=== PATIENT | female | born 1995 | race Caucasian/White ===

== ENCOUNTER 2022-10-06 00:56 | Emergency (ER) | payer SELFPAY ==
--- NOTE | 2022-10-06 01:03 | XRR_ITS ---
PROCEDURE INFORMATION: Exam: XR Chest Exam date and time: 10/06/2022 1:35 AM Age: 27 years old Clinical indication: Shortness of breath; Additional info: SOB TECHNIQUE: Imaging protocol: Radiologic exam of the chest. Views: 1 view. COMPARISON: CT abdomen pelvis w con* [id number] 05/30/2018 8:49 PM FINDINGS: Lungs: Unremarkable. No consolidation. Pleural spaces: Unremarkable. No pleural effusion. No pneumothorax. Heart/Mediastinum: Unremarkable. No cardiomegaly. Bones/joints: Unremarkable. XR/XR chest 1V portable [id number] IMPRESSION: No acute findings.
[2022-10-06 01:12] VITALS: BP 107/64; PULSE 128; RESP 18; TEMP 38.8; O2SAT 95; BMI 22.6
[2022-10-06] MEDS: acetaminophen 500 mg Tablet 1000 MG PO (01:35)
[2022-10-06 01:44] LABS: Rapid Strep A Test Negative (Negative)
--- NOTE | 2022-10-06 01:44 | W.ED.FEVER ---
HPI - Fever General: Chief Complaint: Fever Stated Complaint: Fever, SOB, cough Time Seen by Provider: 10/06/22 01:04 Source: patient Mode of arrival: ambulatory Limitations: no limitations History of Present Illness: 27-year-old female states of the last 2 days she has had flulike symptoms she states she has had cough body aches fever along with a sore throat. States her cough has been nonproductive her pulse ox here is normal she had some mild shortness of breath she had no vomiting no abdominal pain no diarrhea. Associated symptoms: Reports chills; Deny abdominal pain, chest pain, diarrhea, dysuria, headache(s), nausea or vomiting Review of Systems Const: Reports: fever(s), chills and body aches Eyes: Denies: blurry vision or eye discomfort ENMT: Reports: throat pain Card: Denies: chest pain Resp: Reports: non-productive cough GI: Denies: abdominal pain, nausea, vomiting or diarrhea : Denies: dysuria Musc: Denies: neck pain or back pain Skin/Breast: Denies: rash Neuro: Denies: headache(s) Psych: Denies: depression Fred/Lymph: Denies: easy bruising All/Imm: Denies: urticaria PFSH ED PFSH: Medical History (Updated 10/06/22 @ 02:07 by Buddy Montero MD) No pertinent past medical history Social History (Updated 10/06/22 @ 01:46 by Buddy Montero MD) Substance/Drug Use: unknown Physical Exam Const: COMMON NORMALS: no acute distress, patient oriented x3 and healthy appearing HENMT: COMMON NORMALS: normocephalic and atraumatic HEAD & SCALP: normocephalic and atraumatic Eye: COMMON NORMALS: Equal, round and reactive pupils present and EOMs intact bilaterally PUPIL: Yes Equal, round and reactive pupils present Neck/C-Spine: COMMON NORMALS: full ROM and supple Chest: COMMONS NORMALS: normal inspection of the chest and normal palpation of entire chest wall Resp: COMMON NORMALS: normal respiratory effort, No retractions, No use of accessory muscles and clear to auscultation bilaterally AUSCULTATION: clear to auscultation bilaterally Cardio: COMMON NORMALS: regular rhythm and No murmurs present (Cardio) RATE: tachycardic RHYTHM: regular rhythm GI: COMMON NORMALS: Normal to inspection, nondistended, normoactive bowel sounds present, Soft to palpation, non-tender and no masses PALPATION: Yes Soft to palpation Extremity: COMMON NORMALS: normal to inspection and full ROM Neuro: COMMON NORMALS: patient oriented x3, moves all extremities and no focal motor deficits Psych: COMMON NORMALS: mental status grossly normal, Normal thought process present and cooperative THOUGHT PROCESS: Normal thought process present Skin: COMMON NORMALS: no rashes or lesions noted and no wounds GENERAL SKIN EXAM: no rashes or lesions noted Course Vital Signs: Vital signs: Vital Signs Temperature 101.9 F H 10/06/22 01:12 Pulse Rate 128 H 10/06/22 01:12 Respiratory Rate 18 10/06/22 01:12 Blood Pressure 107/64 10/06/22 01:12 Pulse Oximetry 95 10/06/22 01:12 Oxygen Delivery Me thod 10/06/22 01:12 MDM - Fever Medical Decision Making Patient presents here with fever does have flu a we will treat with Tamiflu at home she is to give her self Motrin Tylenol x-ray shows no pneumonia she is stable for discharge she is to follow-up with return if worsening Lab Data Radiology Impressions Chest X-Ray 10/06/22 01:03 IMPRESSION: No acute findings. Laboratory Results Influenza Type A Ag positive (Negative) H 10/06/22 01:19 Influenza Type B Ag negative (Negative) 10/06/22 01:19 SARS-CoV-2 Ag (Rapid) negative (Negative) 10/06/22 01:19 Group A Strep Rapid Negative (Negative) 10/06/22 01:19 Discharge Plan Discharge Patient Disposition: Home Clinical Impression: Influenza Prescriptions: New Tamiflu 75 mg capsule 75 mg PO BID 5 Days Qty: 10 0RF Discharge Orders: Discharge ED (Routine); Ordered 10/06/22 Ordered By: Buddy Montero Referrals: Andre Mccrary MD [Family Provider] - 1-3 days Discharge Diet: Advance as tolerated Discharge Activity: Resume usual activity Patient Instructions: Influenza (ED) Coding Level of Care Code ED Supervisor Of Operations for Chg Fwd Exam Comprehensive
[2022-10-06 01:52] LABS: Influenza A by IFA positive (Negative); Influenza B by IFA negative (Negative)
[2022-10-06 01:53] LABS: SARS Covid-2 Antigen negative (Negative)
[2022-10-06 03:15] VITALS: BP 112/69; PULSE 113; O2SAT 92
== END 2022-10-06 02:47 | disposition home or self-care (01) ==
PROVIDERS: Emergency Provider Emergency Medicine
DX: J11.1 Influenza due to unidentified influenza virus with other respiratory manifestations (principal); Z20.822 Contact with and (suspected) exposure to COVID-19
CPT/HCPCS: 71045; 87081; 87426; 87804; 87880; 99283

== ENCOUNTER 2023-06-04 10:33 | Emergency (ER) | payer SELFPAY ==
[2023-06-04 10:45] VITALS: BMI 23.0
[2023-06-04 10:47] VITALS: BP 103/57; PULSE 89; RESP 15; TEMP 36.8; O2SAT 98
--- NOTE | 2023-06-04 14:53 | ED_ITS ---
HPI - URI/Sore Throat General: Chief Complaint: Upper Respiratory Infection Stated Complaint: stuffy head, chest pressure, weak Time Seen by Provider: 06/04/23 10:34 History of Present Illness: Patient is in for upper respiratory symptoms. She reports that for the past 3 days she has been having significant nasal congestion, drainage. She reports that she has not noted a fever. She reports that yesterday she started feeling a little more weak and tired. She denies vomiting. She does offer that her roommate recently had COVID diagnosed by test within the past 1 week. Associated symptoms: Reports nasal congestion; Deny abdominal pain, chills, chest pain, fever(s), nausea or vomiting Review of Systems Const: Denies: fever(s) or chills ENMT: Reports: throat pain, nasal discharge and nasal congestion Card: Denies: chest pain or palpitations Resp: Reports: non-productive cough and wheezing; Denies: dyspnea or productive cough GI: Denies: abdominal pain, nausea or vomiting : Denies: flank pain, difficulty voiding or dysuria [facility] ED PFSH: Medical History No pertinent past medical history Social History Substance/Drug Use: unknown Female Reproductive History: Date of last menstrual period: 04/29/23 Physical Exam Const: COMMON NORMALS: no acute distress, patient oriented x3 and alert HENMT: COMMON NORMALS: normocephalic and EAC's normal HEAD & SCALP: normocephalic FACE & SINUS: normal facial exam and sinuses nontender NOSE: Abnormal mucous membranes and turbinates present erythematous EXTERNAL AUDITORY CANAL: EAC's normal THROAT: posterior oropharynx abnormal erythema; no exudates Neck/C-Spine: COMMON NORMALS: no JVD Resp: COMMON NORMALS: normal respiratory effort, No use of accessory muscles and clear to auscultation bilaterally AUSCULTATION: clear to auscultation bilaterally Cardio: COMMON NORMALS: no JVD, regular rate, regular rhythm, S1 normal heart sound present and S2 normal heart sound present RATE: regular rate RHYTHM: regular rhythm HEART SOUNDS: S1 normal heart sound present and S2 normal heart sound present Neuro: COMMON NORMALS: patient oriented x3 SENSORIUM/ORIENTATION: Yes alert Course Vital Signs: Vital signs: Vital Signs Temperature 98.2 F 06/04/23 10:47 Pulse Rate 89 06/04/23 10:47 Respiratory Rate 15 06/04/23 10:47 Blood Pressure 103/57 06/04/23 10:47 Pulse Oximetry 98 06/04/23 10:47 Oxygen Delivery Me thod Room Air 06/04/23 10:47 MDM - URI/Sore Throat Medical Decision Making Differentials include viral infection, COVID-19, upper respiratory infection, acute sinusitis Patient had a recent exposure to a known positive COVID-19 patient who is her roommate. Patient reports similar symptoms as her roommate had. Vital signs are stable patient is in no acute distress. Lengthy discussion was held with patient regarding conservative management of COVID-19 should she actually have that. Patient would like to be tested for COVID-19 but also wants to be discharged for home and does not want to stay for the results of the testing at this time. Patient advised that she will call in just a few hours if she had not heard anything. Patient understands conservative treatment at home including staying well-hydrated and making sure that she is coughing and deep breathing frequently make it sure that she is not moving but also resting. Follow-up with primary care provider as needed. Return to the ER for new or worsening symptoms. Patient verbalized understanding of all instruction and agreement. Discharged home in stable condition Discharge Plan Discharge Patient Disposition: Home Clinical Impression: Upper respiratory infection, Viral infection Condition: Stable Prescriptions: No Action No Known Home Medications Discharge Orders: Discharge ED (Routine); Ordered 06/04/23 Ordered By: Georgina Alfonso Discharge Diet: Usual diet Discharge Activity: Resume usual activity Patient Instructions: Social Distancing Guidelines for COVID-19 (ED) Activity Restrictions/Additional Instructions: We are awaiting the results of your COVID-19 nasal swab. At this point, your vital signs are stable. I recommend conservative care at home including a ntihistamine and Flonase to help control postnasal drainage, staying well- hydrated, making sure that you are up and moving, coughing and deep breathing. Monitor closely for new or worsening symptoms and return to the ER should you notice new or worsening symptoms. Continue follow-up with your primary care provider. I recommend quarantine per CDC current guidelines unless you are shown to be negative today for COVID-19. Coding Level of Care Code ED Cheese Packer for Raven Shannon
[2023-06-04 15:12] LABS: SARS Covid-2 Antigen negative (Negative)
== END 2023-06-04 15:11 | disposition home or self-care (01) ==
PROVIDERS: Emergency Provider Nurse Practitioner Family
DX: J06.9 Acute upper respiratory infection, unspecified (principal); Z20.822 Contact with and (suspected) exposure to COVID-19
CPT/HCPCS: 87426; 99282

== ENCOUNTER 2024-07-28 17:35 | Outpatient (CLI) | payer SELFPAY ==
[2024-07-28] VITALS (7 sets, daily range): BP systolic 116–127; BP diastolic 64–72; PULSE 80–123; RESP 17; BMI 28.0
[2024-07-28 18:47] LABS: Bilirubin Urine Negative (Negative); Blood Urine 3+ (Negative); Glucose Urine UA Negative (Normal); Ketones Urine Trace (Negative); Leukocyte Esterase Urine Trace (Negative); Nitrate Urine Negative (Negative); Protein Urine 1+ (Negative); Urine Appearance Clear (CLEAR); Urine Color Yellow (Yellow); pH Urine 5.5 (5-7)
[2024-07-28 18:51] LABS: Bacteria Urine None Seen /hpf; Hyaline Casts Urine 2.05 /lpf; RBC Urine >100 /hpf (0-2); Squamous Epithelial Cell Urine 0-5 /hpf (0-5); WBC Urine 0-5 /hpf (0-5)
[2024-07-28 18:53] LABS: Specific Gravity, Urine 1.035 (1.005-1.030)
[2024-07-28 18:54] LABS: Add Urine Culture? Yes
== END 2024-07-28 19:11 | disposition home or self-care (01) ==
LOC: OPOB 17:36 → OBGYN 17:37
PROVIDERS: Visit Provider Family Medicine
DX: O26.899 Other specified pregnancy related conditions, unspecified trimester (principal); Z3A.00 Weeks of gestation of pregnancy not specified; R51.9 Headache, unspecified; H53.9 Unspecified visual disturbance
CPT/HCPCS: 59025; 81001; 87086; 99211

== ENCOUNTER 2025-08-11 08:20 | Emergency (ER) | payer MEDICAID, SELFPAY ==
--- OUTSIDE RECORDS SUMMARY | 2024-10-25 04:30 | XMS_ITS ---
Author Organization [facility] Address [address] [place] [address] Care Team Providers Care Branch Specialist Name Role Phone Lisa Orly Unavailable [phone] REASON FOR VISIT BTL Encounters Encounter Location Date Provider Diagnosis [address] [place] [address] 10/25/2024 Orly Gonzalez Plan Of Treatment Next Appt Details Provider Name:Orly ferguson, 02/25/2027 02:00:00 PM, [address] [place] [address] [address] [address], [place], [address], Progress Notes * RONALD WATTS SDOB: [birth year] (30 yo F)Acc No.[id number]:10/25/2024 Patient: Jesse COELHO RONALD Leanne Provider: Mamta Gonzalez MD :1995 A ge:29 Y S ex:Female Date:10/25/2024 Address:[address] [place], [place] [id number] Billing Information: * Procedure Codes: * Electronic signature of Gianfranco Gonzalez MD on 08/11/2025 at 08:40 AM HOTEL MANAGER Sign off status: Pending * Provider: Mamta Gonzalez MD Date: 10/25/2024 Generated for Judith ventura/Usama/Yolandaitting on: 10/11/2024 08:40 AM HOTEL MANAGER
--- OUTSIDE RECORDS SUMMARY | 2024-11-24 07:00 | XMS_ITS ---
Author Organization [facility] Address [address] [place] [address] Care Team Providers Care Audit Control Clerk Name Role Phone Lisa Orly Unavailable [phone] REASON FOR VISIT 4 WK POST OP Encounters Encounter Location Date Provider Diagnosis [address] [place] [address] 11/24/2024 Orly Gonzalez Plan Of Treatment Next Appt Details Provider Name:Orly Saldivar ers, 02/25/2027 02:00:00 PM, [address] [place] [address] [address] [address], [place], [address], Progress Notes * RONALD WATTS SDOB: [birth year] (30 yo F)Acc No.[id number]:11/24/2024 Patient: Jesse COELHO RONALD Leanne Provider: Mamta Gonzalez MD :1995 A ge:29 Y S ex:Female Date:11/24/2024 Address:[address] [place], [place] [phone] Subjective: * Chief Complaints: * 4 WK POST OP Billing Information: * Procedure Codes: * Electronic signature of Gianfranco Gonzalez MD on 08/11/2025 at 08:40 AM IMAGING NURSE Sign off status: Pending * Provider: Mamta Gonzalez MD Date: 11/24/2024 Generated for Judith ventura/Usama/Yolandaitting on: 10/11/2024 08:40 AM IMAGING NURSE
[2025-08-11 08:29] VITALS: BP 113/56; PULSE 108; RESP 18; TEMP 36.8; O2SAT 93; BMI 24.6
--- OUTSIDE RECORDS SUMMARY | 2025-08-11 08:40 | XMS_ITS | Patient Health Record ---
Author Organization 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 Name Role Phone Orly Gonzalez Unavailable [phone] Allergies No Known Allergies Results Component Value Reference Range Flag Notes UA Reflex Micro, Reflex Cult 40532, 23050, 68510 Reviewed date:09/15/2024 08:35:21 AM Interpretation: Performing Lab: Notes/Report: Color UA Yellow NA Clarity UA Clear NA Specific gravity UA 1.020 1.005-1.030 Urine pH 6.0 5.0-8.0 NA Urine Glucose Negative NA Urine Bilirubin Negative NA Urine Ketone Trace NA Urine Blood 2+ NA Urine Protein 2+ NA Urobilinogen 0.2 0.1-1.0 NA Urine Nitrite Negative NA Urine Leukocyte Negative NA Normal UA Yes Urine Culture No UA Without Micro-Auto, [place] - [id number] Reviewed date:09/07/2024 02:17:00 PM Interpretation: Performing Lab: Notes/Report: Color JEREMÍAS Clarity CLEAR Glucose - Bili - Ketones - Sp [place] 1.020 Blood - pH 6.0 Protein -+ Urobili 0.2 Nitrites - Leukocytes - CBC w\ Manual Diff 75563, 85 027 Reviewed date:09/20/2024 09:30:56 AM Interpretation: Performing Lab: Notes/Report: WBC 7.6 4.5-11.0 X10'3 RBC 3.23 4.00-5.20 X10'6 LOW Hgb 9.0 12.0-16.0 G/DL LOW Hct 28.1 36.0-46.0 % LOW MCV 87.0 80.0-100.0 FL MCH 27.9 27.0-31.0 PG MCHC 32.0 31.0-37.0 G/DL Platelet 160 150-400 X10'3 RDW-SD 41.9 35.0-49.0 FL RDW-CV 13.3 12.2-15.6 % MPV 11.4 9.2-12.0 FL Band/Segs Man 84 40-70 % HI Lymph Man 14 22-44 % LOW Monocyte Man 2 3-7 % LOW Eos Man 0 2-4 % LOW Basophil Man 0 0-1 % PLT Appear Adequate RBC Morph Normal Morph Absolute Neutrophil Count 6384 NA Magnesium (B) 87730 Reviewed date:09/19/2024 03:43:59 PM Interpretation: Performing Lab: Notes/Report: Magnesium 4.7 1.8-2.4 MG/DL CO Comprehensive Metabolic Pane l (CMP) 91035 Reviewed date:09/19/2024 03:44:06 PM Interpretation: Performing Lab: Notes/Report: Glucose Serum 162 71-110 MG/DL HI Testing p erformed at [facility], [address] [place] [address] [place] [address]. CLIA ID#: [id number] BUN 6 7-21 MG/DL LOW Creat .53 .51-1.17 MG/DL W-vkjoea-o-benzoquino ne imine (NAPQI) is a metabolite of acetaminophen, NAPQI concentrations of apparoximately 10 mg/L correlation to toxic levels of acetaminophen demonstrates a greater than or equil to 10% change in results. NAPQI concentrations greater than this may lead to falsely depressed results for patient samples. Use of this assay is not recommended for patients undergoing treatment with phenindione, due to the potential for falsely depressed results. GFR 128.9 NA Calculation pe rformed from GFR calculator provided by the [employer]. Glomerular Filtration rate(GRF) is the best overall index of kidney function. Normal GFR varies according to age,sex, body size, and declines with age. The National [employer] recommends using the CKD-EPI Creatinine Equation(2020) to estimate GFR. BUN/Creat Ratio 11.3 12.0-20.0 % LOW Total Protein 5.5 5.8-8.0 G/DL LOW Albumin 3.3 3.2-4.8 G/DL Globulin 2.2 2.3-3.5 G/DL LOW Alb/Glob 1.5 0.8-2.2 Calcium 7.9 8.7-10.4 MG/DL LOW Sodium 140 136-145 MMOL/L Potassium 3.8 3.5-5.1 MMOL/L Chloride 108 98-107 MMOL/L HI CO2 23.7 20.0-31.0 MMOL/L Anion Gap 12 5-15 Alk Phos 150 46-116 HI Bili Total .2 .3-1.2 MG/DL LOW Use of this assay is not recommended for patients undergoing treatment with eltrombopag due to the potential for falsely elevated results. AST/SGOT 11 15-37 UNIT/L LOW ALT/SGPT <7 12-78 UNIT/L LOW Osmo Serum,Calculated 291 280-300 MOSM/KG SYPHILIS TEST, QUAL (RPR) 86 592 Reviewed date:09/19/2024 07:59:40 AM Interpretation: Performing Lab: Notes/Report: Syphilis Screen Non-Reactive NA Testing performed via [employer] IM analyzer. This assay is a Chemiluminescent Microparticle Immunoassay for the detection of Treponemal antibodies. Reactive samples will be confirmed via RPR w/Reflex to Titer in accordance with CDC's recommended reverse sequence screening algorithm. Antibody Screen 98973 Reviewed date:09/19/2024 07:59:40 AM Interpretation: Performing Lab: Notes/Report: Blood Bank ID [id number] Unknown ABSC Interp Negative ABORh 71833, 60961 Reviewed date:09/19/2024 07:59:40 AM Interpretation: Performing Lab: Notes/Report: ABO/Rh Interp A NEG Unknown Magnesium (B) 64209 Reviewed date:09/19/2024 07:59:40 AM Interpretation: Performing Lab: Notes/Report: Magnesium 1.9 1.8-2.4 MG/DL Comprehensive Metabolic Pane l (CMP) 57318 Reviewed date:09/19/2024 07:59:40 AM Interpretation: Performing Lab: Notes/Report: Glucose Serum 94 71-110 MG/DL Testing p erformed at [facility], [address] [place] [address] [place] [address]. CLIA ID#: [id number] BUN 9 7-21 MG/DL Creat .54 .51-1.17 MG/DL C-lysbwl-m-benzoquino ne imine (NAPQI) is a metabolite of acetaminophen, NAPQI concentrations of apparoximately 10 mg/L correlation to toxic levels of acetaminophen demonstrates a greater than or equil to 10% change in results. NAPQI concentrations greater than this may lead to falsely depressed results for patient samples. Use of this assay is not recommended for patients undergoing treatment with phenindione, due to the potential for falsely depressed results. GFR 128.2 NA Calculation pe rformed from GFR calculator provided by the [employer]. Glomerular Filtration rate(GRF) is the best overall index of kidney function. Normal GFR varies according to age,sex, body size, and declines with age. The National [employer] recommends using the CKD-EPI Creatinine Equation(2020) to estimate GFR. BUN/Creat Ratio 16.7 12.0-20.0 % Total Protein 5.8 5.8-8.0 G/DL Albumin 3.8 3.2-4.8 G/DL Globulin 2.0 2.3-3.5 G/DL LOW Alb/Glob 1.9 0.8-2.2 Calcium 9.1 8.7-10.4 MG/DL Sodium 137 136-145 MMOL/L Potassium 3.9 3.5-5.1 MMOL/L Chloride 108 98-107 MMOL/L HI CO2 20.4 20.0-31.0 MMOL/L Anion Gap 12 5-15 Alk Phos 182 46-116 HI Bili Total .2 .3-1.2 MG/DL LOW Use of this assay is not recommended for patients undergoing treatment with eltrombopag due to the potential for falsely elevated results. AST/SGOT 13 15-37 UNIT/L LOW ALT/SGPT <7 12-78 UNIT/L LOW Osmo Serum,Calculated 282 280-300 MOSM/KG Creatinine (U) 12795 Reviewed date:09/19/2024 07:59:40 AM Interpretation: Performing Lab: Notes/Report: Ur Creat 214.4 29.0-226.0 Protein (U) Random 09776 Reviewed date:09/19/2024 07:59:40 AM Interpretation: Performing Lab: Notes/Report: Ur Prot 243.30 .00-12.00 MG/DL HI WBC Auto Diff--12749 Reviewed date:09/19/2024 07:59:40 AM Interpretation: Performing Lab: Notes/Report: Added by Discern Rules Neutro Auto% 76.7 40.0-70.0 % HI Lymph Auto% 15.0 22.0-44.0 % LOW [place] Auto% 6.8 3.0-7.0 % Eos Auto% .7 2.0-4.0 % LOW Baso Auto% 0.1 0.0-1.0 % NRBC% .00 .00-.20 /100 intact WBC's Neutro Abs 5.84 .80-7.70 Absolute Neutrophil Count 5840 NA Lymph Abs 1.14 .10-4.10 [place] Abs .52 .20-1.00 Eos Abs .05 .00-.40 Baso Abs .01 .00-.20 NRBC# .00 .00-.20 X10'3 Imm Gran Abs .05 .00-.10 Imm Gran% .7 .0-.4 % HI CBC Reflex Man Diff 61106, 8 5007 Reviewed date:09/19/2024 07:59:40 AM Interpretation: Performing Lab: Notes/Report: WBC 7.6 4.5-11.0 X10'3 RBC 3.83 4.00-5.20 X10'6 LOW Hgb 10.7 12.0-16.0 G/DL LOW Hct 32.0 36.0-46.0 % LOW MCV 83.6 80.0-100.0 FL MCH 27.9 27.0-31.0 PG MCHC 33.4 31.0-37.0 G/DL Platelet 194 150-400 X10'3 RDW-SD 40.0 35.0-49.0 FL RDW-CV 13.2 12.2-15.6 % MPV 11.5 9.2-12.0 FL Review Auto Diff Conf Drug Screen Multi Panel 8030 5 Reviewed date:10/06/2024 09:25:45 AM Interpretation: Performing Lab: Notes/Report: Marijuana-THC Negative Speciman analysis was performed without chain of custody handling. Testing performed by colorimetric method. Confirmation is pending. These resuts should be used for medical purposes only and not for any legal or employment evaluative purposes. In very rare instances, and extremely high drug concentration may field a negative result for any qualitative drug screening assay. The potential for false negative results in these rare instances exsists for all drug screening methods. Specimen Type: Urine Cutoff value: 50 ng/mL Cocaine-CAITLIN Negative Specimen analysis was performed without chain of custody handling. Testing performed by colorimetric method. Confirmation is pending. These resuts should be used for medical purposes only and not for any legal or employment evaluative purposes. In very rare instances, and extremely high drug concentration may field a negative result for any qualitative drug screening assay. The potential for false negative results in these rare instances exsists for all drug screening methods. Specimen Type: Urine Cutoff value: 300 ng/mL Opiates-MOP Negative Speciman analysis was performed without chain of custody handling. Testing performed by colorimetric method. Confirmation is pending. These resuts should be used for medical purposes only and not for any legal or employment evaluative purposes. In very rare instances, and extremely high drug concentration may field a negative result for any qualitative drug screening assay. The potential for false negative results in these rare instances exsists for all drug screening methods. Specimen Type: Urine Cutoff value: 2000 ng/mL Amphetamine-AMP Negative Speciman analysis was performed without chain of custody handling. Testing performed by colorimetric method. Confirmation is pending. These resuts should be used for medical purposes only and not for any legal or employment evaluative purposes. In very rare instances, and extremely high drug concentration may field a negative result for any qualitative drug screening assay. The potential for false negative results in these rare instances exsists for all drug screening methods. Specimen Type: Urine Cutoff value: 1000 ng/mL Methamphetamines-MET Negative Speciman analysis was performed without chain of custody handling. Testing performed by colorimetric method. Confirmation is pending. These resuts should be used for medical purposes only and not for any legal or employment evaluative purposes. In very rare instances, and extremely high drug concentration may field a negative result for any qualitative drug screening assay. The potential for false negative results in these rare instances exsists for all drug screening methods. Specimen Type: Urine Cutoff value: 1000 ng/mL Phencyclidine-PCP Negative Speciman analysis was performed without chain of custody handling. Testing performed by colorimetric method. Confirmation is pending. These resuts should be used for medical purposes only and not for any legal or employment evaluative purposes. In very rare instances, and extremely high drug concentration may field a negative result for any qualitative drug screening assay. The potential for false negative results in these rare instances exsists for all drug screening methods. Specimen Type: Urine Cutoff value: 25 ng/mL Ecstasy-MDMA Negative Speciman analysis was performed without chain of custody handling. Testing performed by colorimetric method. Confirmation is pending. These resuts should be used for medical purposes only and not for any legal or employment evaluative purposes. In very rare instances, and extremely high drug concentration may field a negative result for any qualitative drug screening assay. The potential for false negative results in these rare instances exsists for all drug screening methods. Specimen Type: Urine Cutoff value: 500 ng/mL Barbiturates-BAR Negative Speciman analysis was performed without chain of custody handling. Testing performed by colorimetric method. Confirmation is pending. These resuts should be used for medical purposes only and not for any legal or employment evaluative purposes. In very rare instances, and extremely high drug concentration may field a negative result for any qualitative drug screening assay. The potential for false negative results in these rare instances exsists for all drug screening methods. Specimen Type: Urine Cutoff value: 300 ng/mL Benzodiazepines-BZO Negative Speciman analysis was performed without chain of custody handling. Testing performed by colorimetric method. Confirmation is pending. These resuts should be used for medical purposes only and not for any legal or employment evaluative purposes. In very rare instances, and extremely high drug concentration may field a negative result for any qualitative drug screening assay. The potential for false negative results in these rare instances exsists for all drug screening methods. Specimen Type: Urine Cutoff value: 300 ng/mL Methadone-MTD Negative Speciman analysis was performed without chain of custody handling. Testing performed by colorimetric method. Confirmation is pending. These resuts should be used for medical purposes only and not for any legal or employment evaluative purposes. In very rare instances, and extremely high drug concentration may field a negative result for any qualitative drug screening assay. The potential for false negative results in these rare instances exsists for all drug screening methods. Specimen Type: Urine Cutoff value: 300 ng/mL Oxycodone-OXY Negative Speciman analysis was performed without chain of custody handling. Testing performed by colorimetric method. Confirmation is pending. These resuts should be used for medical purposes only and not for any legal or employment evaluative purposes. In very rare instances, and extremely high drug concentration may field a negative result for any qualitative drug screening assay. The potential for false negative results in these rare instances exsists for all drug screening methods. Specimen Type: Urine Cutoff value: 100 ng/mL Buprenorphine-BUP Negative Analysis was performed without chain of custody handling. Testing performed by colorimetric method. Confirmation is pending. These resuts should be used for medical purposes only and not for any legal or employment evaluative purposes. In very rare instances, and extremely high drug concentration may field a negative result for any qualitative drug screening assay. The potential for false negative results in these rare instances exsists for all drug screening methods. Specimen Type: Urine Cutoff value: 10 ng/mL UA Microscopic--60641 Reviewed date:10/06/2024 09:25:45 AM Interpretation: Performing Lab: Notes/Report: Micro UA ordered by [employer] Expert Rules system. RBC U 3 NA WBC U 27 0-5 /HPF HI Bacteria 2+ Hyaline Casts 4 NA SQ EPI 24 NA UA Reflex Micro, Reflex Cult 11081, 68380, 55472 Reviewed date:10/06/2024 09:25:45 AM Interpretation: Performing Lab: Notes/Report: Color UA Yellow NA Clarity UA Cloudy NA Specific gravity UA 1.029 1.005-1.030 Urine pH 5.5 5.0-8.0 NA Urine Glucose Negative NA Urine Bilirubin Negative NA Urine Ketone Negative NA Urine Blood Negative NA Urine Protein 3+ NA Urobilinogen 0.2 0.1-1.0 NA Urine Nitrite Negative NA Urine Leukocyte Negative NA Normal UA No Urine Culture Yes UA Without Micro-Auto, [place] - [address] Reviewed date:09/14/2024 01:22:28 PM Interpretation: Performing Lab: Notes/Report: Color jeremías Clarity clear Glucose - Bili - Ketones - Sp [place] 1.025 Blood - pH 6.0 Protein 2+ Urobili 0.2 Nitrites - Leukocytes - UA Reflex Micro, Reflex Cult 52013, 84195, 50202 Reviewed date:08/23/2024 12:56:02 PM Interpretation: Performing Lab: Notes/Report: Color UA Yellow NA Clarity UA Clear NA Specific gravity UA 1.012 1.005-1.030 Urine pH 8.0 5.0-8.0 NA Urine Glucose Negative NA Urine Bilirubin Negative NA Urine Ketone Negative NA Urine Blood Negative NA Urine Protein Negative NA Urobilinogen 0.2 0.1-1.0 NA Urine Nitrite Negative NA Urine Leukocyte Negative NA Normal UA No Urine Culture No UA Without Micro-[place], [place] - [id number] Reviewed date:08/17/2024 09:03:37 AM Interpretation: Performing Lab: Notes/Report: Color yellow Clarity clear Glucose - Bili - Ketones - Sp [place] 1.025 Blood - pH 6.0 Protein - Urobili .2 Nitrites - Leukocytes - Culture, Group B Strep--8708 1 Reviewed date:09/05/2024 08:06:36 AM Interpretation: Performing Lab: Notes/Report: Culture Group B Strep RONALD Nguyen Culture Group B Strep t: Culture Group B Strep Culture Group B Strep Accessio [id number] Culture Group B Strep n: Culture Group B Strep Microbiology Culture Group B Strep PROCEDURE: Culture Group B Strep Culture Group B Strep [O1] Culture Group B Strep SOURCE: Body Fl BODY SITE: Culture Group B Strep COLLECTED DATE/TIME: 08/31/2024 08:56 LAUNCH CHECK OUT RECEIVED DATE/TIME: 08/31/2024 14:42 LAUNCH CHECK OUT Culture Group B Strep START DATE/TIME: 08/31/2024 14:42 LAUNCH CHECK OUT FREE TEXT SOURCE: Culture Group B Strep FINAL REPORT Culture Group B Strep Final Report [] Culture Group B Strep Verified Date/Time: 09/02/2024 08:17 LAUNCH CHECK OUT Culture Group B Strep No group B streptococci isolated Culture Group B Strep Order Comments Culture Group B Strep O1: Culture Group B Strep (Culture, Group B Strep) Culture Group B Strep Diagnosis Description: Encounter for supervision of normal , unspecified, third Culture Group B Strep trimester CT/ NG PCR 11957, 37959 Reviewed date:08/31/2024 05:00:40 PM Interpretation: Performing Lab: Notes/Report: Diagnosis Description: Encounter for supervision of normal , unspecified, third trimester CT PCR NOT DETECTED NG PCR NOT DETECTED UA Without Micro-Auto, [place] - [address] Reviewed date:08/31/2024 11:49:45 AM Interpretation: Performing Lab: Notes/Report: Color yellow Clarity cloudy Glucose - Bili - Ketones - Sp [place] 1.030 Blood - pH 6.0 Protein +- Urobili 0.2 Nitrites - Leukocytes - UA Reflex Micro, Reflex Cult 55289, 09601, 79749 Reviewed date:08/18/2024 09:26:46 PM Interpretation: Performing Lab: Notes/Report: Color UA Yellow NA Clarity UA Clear NA Specific gravity UA 1.019 1.005-1.030 Urine pH 6.5 5.0-8.0 NA Urine Glucose Negative NA Urine Bilirubin Negative NA Urine Ketone Negative NA Urine Blood Negative NA Urine Protein Negative NA Urobilinogen 0.2 0.1-1.0 NA Urine Nitrite Negative NA Urine Leukocyte Negative NA Normal UA Yes Urine Culture No UA Microscopic--73595 Reviewed date:08/23/2024 12:56:02 PM Interpretation: Performing Lab: Notes/Report: Micro UA ordered by [employer] Expert Rules system. RBC U 1 NA WBC U 1 0-5 /HPF Bacteria None Seen Hyaline Casts <1 NA SQ EPI 1 NA Drug Screen Multi Panel 8030 5 Reviewed date:08/23/2024 02:14:55 PM Interpretation: Performing Lab: Notes/Report: Please use urine that was sent earlier Marijuana-THC Negative Speciman analysis was performed without chain of custody handling. Testing performed by colorimetric method. Confirmation is pending. These resuts should be used for medical purposes only and not for any legal or employment evaluative purposes. In very rare instances, and extremely high drug concentration may field a negative result for any qualitative drug screening assay. The potential for false negative results in these rare instances exsists for all drug screening methods. Specimen Type: Urine Cutoff value: 50 ng/mL Cocaine-CAITLIN Negative Specimen analysis was performed without chain of custody handling. Testing performed by colorimetric method. Confirmation is pending. These resuts should be used for medical purposes only and not for any legal or employment evaluative purposes. In very rare instances, and extremely high drug concentration may field a negative result for any qualitative drug screening assay. The potential for false negative results in these rare instances exsists for all drug screening methods. Specimen Type: Urine Cutoff value: 300 ng/mL Opiates-MOP Negative Speciman analysis was performed without chain of custody handling. Testing performed by colorimetric method. Confirmation is pending. These resuts should be used for medical purposes only and not for any legal or employment evaluative purposes. In very rare instances, and extremely high drug concentration may field a negative result for any qualitative drug screening assay. The potential for false negative results in these rare instances exsists for all drug screening methods. Specimen Type: Urine Cutoff value: 2000 ng/mL Amphetamine-AMP Negative Speciman analysis was performed without chain of custody handling. Testing performed by colorimetric method. Confirmation is pending. These resuts should be used for medical purposes only and not for any legal or employment evaluative purposes. In very rare instances, and extremely high drug concentration may field a negative result for any qualitative drug screening assay. The potential for false negative results in these rare instances exsists for all drug screening methods. Specimen Type: Urine Cutoff value: 1000 ng/mL Methamphetamines-MET Negative Speciman analysis was performed without chain of custody handling. Testing performed by colorimetric method. Confirmation is pending. These resuts should be used for medical purposes only and not for any legal or employment evaluative purposes. In very rare instances, and extremely high drug concentration may field a negative result for any qualitative drug screening assay. The potential for false negative results in these rare instances exsists for all drug screening methods. Specimen Type: Urine Cutoff value: 1000 ng/mL Phencyclidine-PCP Negative Speciman analysis was performed without chain of custody handling. Testing performed by colorimetric method. Confirmation is pending. These resuts should be used for medical purposes only and not for any legal or employment evaluative purposes. In very rare instances, and extremely high drug concentration may field a negative result for any qualitative drug screening assay. The potential for false negative results in these rare instances exsists for all drug screening methods. Specimen Type: Urine Cutoff value: 25 ng/mL Ecstasy-MDMA Negative Speciman analysis was performed without chain of custody handling. Testing performed by colorimetric method. Confirmation is pending. These resuts should be used for medical purposes only and not for any legal or employment evaluative purposes. In very rare instances, and extremely high drug concentration may field a negative result for any qualitative drug screening assay. The potential for false negative results in these rare instances exsists for all drug screening methods. Specimen Type: Urine Cutoff value: 500 ng/mL Barbiturates-BAR Negative Speciman analysis was performed without chain of custody handling. Testing performed by colorimetric method. Confirmation is pending. These resuts should be used for medical purposes only and not for any legal or employment evaluative purposes. In very rare instances, and extremely high drug concentration may field a negative result for any qualitative drug screening assay. The potential for false negative results in these rare instances exsists for all drug screening methods. Specimen Type: Urine Cutoff value: 300 ng/mL Benzodiazepines-BZO Negative Speciman analysis was performed without chain of custody handling. Testing performed by colorimetric method. Confirmation is pending. These resuts should be used for medical purposes only and not for any legal or employment evaluative purposes. In very rare instances, and extremely high drug concentration may field a negative result for any qualitative drug screening assay. The potential for false negative results in these rare instances exsists for all drug screening methods. Specimen Type: Urine Cutoff value: 300 ng/mL Methadone-MTD Negative Speciman analysis was performed without chain of custody handling. Testing performed by colorimetric method. Confirmation is pending. These resuts should be used for medical purposes only and not for any legal or employment evaluative purposes. In very rare instances, and extremely high drug concentration may field a negative result for any qualitative drug screening assay. The potential for false negative results in these rare instances exsists for all drug screening methods. Specimen Type: Urine Cutoff value: 300 ng/mL Oxycodone-OXY Negative Speciman analysis was performed without chain of custody handling. Testing performed by colorimetric method. Confirmation is pending. These resuts should be used for medical purposes only and not for any legal or employment evaluative purposes. In very rare instances, and extremely high drug concentration may field a negative result for any qualitative drug screening assay. The potential for false negative results in these rare instances exsists for all drug screening methods. Specimen Type: Urine Cutoff value: 100 ng/mL Buprenorphine-BUP Negative Analysis was performed without chain of custody handling. Testing performed by colorimetric method. Confirmation is pending. These resuts should be used for medical purposes only and not for any legal or employment evaluative purposes. In very rare instances, and extremely high drug concentration may field a negative result for any qualitative drug screening assay. The potential for false negative results in these rare instances exsists for all drug screening methods. Specimen Type: Urine Cutoff value: 10 ng/mL Bleed Screen--No CPT Reviewed date:09/19/2024 12:51:50 PM Interpretation: Performing Lab: Notes/Report: Order placed by [facility] to assess need for Rho(D) immune globulin. Screen Negative QC Positive Positive QC Negative Negative # of 300mcg doses of Rho IG 1 NA Comprehensive Metabolic Pane l (CMP) [id number] Reviewed date:09/21/2024 10:19:09 AM Interpretation: Performing Lab: Notes/Report: Glucose Serum 64 71-110 MG/DL LOW Testing p erformed at [address] [place] [address]. CLIA ID#: [id number] BUN 8 7-21 MG/DL Creat .66 .51-1.17 MG/DL U-rxajvc-t-benzoquino ne imine (NAPQI) is a metabolite of acetaminophen, NAPQI concentrations of apparoximately 10 mg/L correlation to toxic levels of acetaminophen demonstrates a greater than or equil to 10% change in results. NAPQI concentrations greater than this may lead to falsely depressed results for patient samples. Use of this assay is not recommended for patients undergoing treatment with phenindione, due to the potential for falsely depressed results. GFR 122.2 NA Calculation pe rformed from GFR calculator provided by the [employer]. Glomerular Filtration rate(GRF) is the best overall index of kidney function. Normal GFR varies according to age,sex, body size, and declines with age. The National [employer] recommends using the CKD-EPI Creatinine Equation(2020) to estimate GFR. BUN/Creat Ratio 12.1 12.0-20.0 % Total Protein 6.4 5.8-8.0 G/DL Albumin 3.9 3.2-4.8 G/DL Globulin 2.5 2.3-3.5 G/DL Alb/Glob 1.6 0.8-2.2 Calcium 9.4 8.7-10.4 MG/DL Delta chec k noted, will monitor Sodium 140 136-145 MMOL/L Potassium 4.0 3.5-5.1 MMOL/L Chloride 104 98-107 MMOL/L CO2 26.3 20.0-31.0 MMOL/L Anion Gap 14 5-15 Alk Phos 147 46-116 HI Bili Total .3 .3-1.2 MG/DL Use of this assay is not recommended for patients undergoing treatment with eltrombopag due to the potential for falsely elevated results. AST/SGOT 13 15-37 UNIT/L LOW ALT/SGPT <7 12-78 UNIT/L LOW Osmo Serum,Calculated 287 280-300 MOSM/KG Comprehensive Metabolic Pane l (CMP) [id number] Reviewed date:09/20/2024 09:30:56 AM Interpretation: Performing Lab: Notes/Report: Glucose Serum 76 71-110 MG/DL Testing p erformed at [address] [place] [address]. CLIA ID#: [id number] BUN <5 7-21 MG/DL LOW Creat .58 .51-1.17 MG/DL W-qmrnpm-r-benzoquino ne imine (NAPQI) is a metabolite of acetaminophen, NAPQI concentrations of apparoximately 10 mg/L correlation to toxic levels of acetaminophen demonstrates a greater than or equil to 10% change in results. NAPQI concentrations greater than this may lead to falsely depressed results for patient samples. Use of this assay is not recommended for patients undergoing treatment with phenindione, due to the potential for falsely depressed results. GFR 126.1 NA Calculation pe rformed from GFR calculator provided by the [employer]. Glomerular Filtration rate(GRF) is the best overall index of kidney function. Normal GFR varies according to age,sex, body size, and declines with age. The National [employer] recommends using the CKD-EPI Creatinine Equation(2020) to estimate GFR. BUN/Creat Ratio <8.6 12.0-20.0 % LOW Total Protein 5.4 5.8-8.0 G/DL LOW Albumin 3.2 3.2-4.8 G/DL Globulin 2.1 2.3-3.5 G/DL LOW Alb/Glob 1.5 0.8-2.2 Calcium 7.1 8.7-10.4 MG/DL LOW Sodium 139 136-145 MMOL/L Potassium 3.6 3.5-5.1 MMOL/L Chloride 109 98-107 MMOL/L HI CO2 22.4 20.0-31.0 MMOL/L Anion Gap 11 5-15 Alk Phos 134 46-116 HI Bili Total .2 .3-1.2 MG/DL LOW Use of this assay is not recommended for patients undergoing treatment with eltrombopag due to the potential for falsely elevated results. AST/SGOT 12 15-37 UNIT/L LOW ALT/SGPT <7 12-78 UNIT/L LOW ZZZPathology Specimen Reviewed date:09/20/2024 09:30:56 AM Interpretation: Performing Lab: Notes/Report: Order placed by [facility] for documentation of an indication for pathology of the placenta. Pathology Specimen Sent to Pathologist Caitlin (B) [id number] Reviewed date:09/20/2024 09:30:56 AM Interpretation: Performing Lab: Notes/Report: Magnesium 5.7 1.8-2.4 MG/DL CO Comprehensive Metabolic Pane l (CMP) [id number] Reviewed date:09/20/2024 09:30:56 AM Interpretation: Performing Lab: Notes/Report: Glucose Serum 107 71-110 MG/DL Testing p erformed at [facility], [address] [place] [address] [place] [address]. CLIA ID#: [id number] BUN 6 7-21 MG/DL LOW Creat .59 .51-1.17 MG/DL G-wttcsw-a-benzoquino ne imine (NAPQI) is a metabolite of acetaminophen, NAPQI concentrations of apparoximately 10 mg/L correlation to toxic levels of acetaminophen demonstrates a greater than or equil to 10% change in results. NAPQI concentrations greater than this may lead to falsely depressed results for patient samples. Use of this assay is not recommended for patients undergoing treatment with phenindione, due to the potential for falsely depressed results. GFR 125.6 NA Calculation pe rformed from GFR calculator provided by the [employer]. Glomerular Filtration rate(GRF) is the best overall index of kidney function. Normal GFR varies according to age,sex, body size, and declines with age. The National [employer] recommends using the CKD-EPI Creatinine Equation(2020) to estimate GFR. BUN/Creat Ratio 10.2 12.0-20.0 % LOW Total Protein 5.2 5.8-8.0 G/DL LOW Albumin 3.3 3.2-4.8 G/DL Globulin 1.9 2.3-3.5 G/DL LOW Alb/Glob 1.7 0.8-2.2 Calcium 7.4 8.7-10.4 MG/DL LOW Sodium 138 136-145 MMOL/L Potassium 3.7 3.5-5.1 MMOL/L Chloride 109 98-107 MMOL/L HI CO2 21.2 20.0-31.0 MMOL/L Anion Gap 12 5-15 Alk Phos 142 46-116 HI Bili Total .2 .3-1.2 MG/DL LOW Use of this assay is not recommended for patients undergoing treatment with eltrombopag due to the potential for falsely elevated results. AST/SGOT 14 15-37 UNIT/L LOW ALT/SGPT <7 12-78 UNIT/L LOW Osmo Serum,Calculated 284 280-300 MOSM/KG Magnesium (B) 74239 Reviewed date:09/20/2024 09:30:56 AM Interpretation: Performing Lab: Notes/Report: Magnesium 5.6 1.8-2.4 MG/DL HI Culture Urine Reflex--[id number] Reviewed date:10/06/2024 09:25:45 AM Interpretation: Performing Lab: Notes/Report: Culture Urine Reflex Myabhavna BOB WATTS Culture Urine Reflex t: Culture Urine Reflex Culture Urine Reflex Accessio [id number] Culture Urine Reflex n: Culture Urine Reflex Microbiology Culture Urine Reflex PROCEDURE: Culture Urine Reflex [] Culture Urine Reflex SOURCE: U CC BODY SITE: Culture Urine Reflex COLLECTED DATE/TIME : 09/18/2024 20:14 LAUNCH CHECK OUT RECEIVED DATE/TIME: 09/18/2024 20:21 LAUNCH CHECK OUT Culture Urine Reflex START DATE/TIME: 09/18/2024 20:21 LAUNCH CHECK OUT FREE TEXT SOURCE: Culture Urine Reflex FINAL REPORT Culture Urine Reflex Final Report [] Culture Urine Reflex Verified Date/Time: 09/20/2024 06:32 LAUNCH CHECK OUT Culture Urine Reflex > 10,000 cfu/ml mixed superficial kathryn Culture Urine Reflex Multiple microorganisms present Culture Urine Reflex Probable contamination Reason For Referral No Information Medications Medication SIG (Take, Route, Frequency, Duration) Notes Start Date End Date Status Active Escitalopram Oxalate 10 MG Tablet 1/2 tablet for first 8 days then 1 tab daily Orally Once a day; Duration: 30 days 04/12/2024 Active Immunizations Vaccine Route Administration Date Status Comme nts RSV, bivalent (Abrysvo) IM Intramuscular 08/03/2024 Admini stered Tdap IM Intramuscular 07/20/2024 Administered Social History Tobacco Use: Social History Observation Description Date Details (start date - stop date) Former Smoker NA - NA Social History Tobacco Use: Social Info Question Answer Notes Tobacco Control (Standard) Tobacco use: Former smoker How long has it been since you last smoked? Less than 1 month Additional Details Category Social Info Options Details Drugs/Alcohol: Do you smoke marijuana? De nies Do you drink alcohol? No Section Notes: Prior tob quit 01/2024, negat arabella etoh & illicit drugs, lives with boyfriend and daughter, safe, denies h/o abuse, SAHM Prior tob quit 01/2024, negat arabella etoh & illicit drugs, lives with boyfriend and daughter, safe, denies h/o abuse, SAHM Prior tob quit 01/2024, negat arabella etoh & illicit drugs, lives with boyfriend and daughter, safe, denies h/o abuse, SAHM Prior tob quit 01/2024, negat arabella etoh & illicit drugs, lives with boyfriend and children, safe, denies h/o abuse, SAHM Prior tob quit 01/2024, negat arabella etoh & illicit drugs, lives with boyfriend and daughter, safe, denies h/o abuse, SAHM Prior tob quit 01/2024, negat arabella etoh & illicit drugs, lives with boyfriend and daughter, safe, denies h/o abuse, SAHM Prior tob quit 01/2024, negat arabella etoh & illicit drugs, lives with boyfriend and daughter, safe, denies h/o abuse, SAHM Prior tob quit 01/2024, negat arabella etoh & illicit drugs, lives with boyfriend and daughter, safe, denies h/o abuse, SAHM Prior tob quit 01/2024, negat arabella etoh & illicit drugs, lives with boyfriend and daughter, safe, denies h/o abuse, SAHM Prior tob quit 01/2024, negat arabella etoh & illicit drugs, lives with boyfriend and children, safe, denies h/o abuse, SAHM Problems Problem Type SNOMED Code ICD Code Onset Dates Problem Status W/U Status Risk Notes Problem Anxiety (93025708) Anxiety (F41.9) Active confirmed Vital Signs Heart Rate 90 /min 11/29/2024 Respiratory Rate 18 /min 11/29/2024 Height-cm 160.02 cm 11/29/2024 Oximetry 98 % 11/29/2024 Blood pressure diastolic 72 mm Hg 11/29/2024 Weight-kg 67.54 kg 11/29/2024 Height 63 in 11/29/2024 Blood pressure systolic 106 mm Hg 11/29/2024 Weight 148.9 lbs 11/29/2024 BMI 26.37 kg/m2 11/29/2024 Encounters Encounter Location Date Provider Diagnosis [address] [place] [address] 09/07/2024 Orly Gonzalez Encounter for supervision of normal in third trimester, unspecified Z34.[address] [place] [address] 08/31/2024 Orly Gonzalez Encounter for supervision of normal in third trimester, unspecified Z34.[address] [place] [address] 08/17/2024 Orly Gonzalez Encounter for supervision of normal in third trimester, unspecified Z34.[address] [place] [address] 11/29/2024 Orly Gonzalez state Z39.2 and Postoperative state Z98.8[address] [place] [address] 10/03/2024 Orly Gonzalez state Z39.2 and Encounter for consultation for female sterilization Z30.[address] [place] [address] 09/14/2024 Orly Gonzalez Encounter for supervision of normal in third trimester, unspecified Z34.[address] [place] [address] 10/25/2024 Orly Gonzalez [address] [place] [address] 08/26/2024 Orly Gonzalez Assessments Encounter Date Diagnosis (ICD Code) Assessment Notes Treatment Notes Treatment Clinical Notes Section Notes 09/07/2024 Encounter for supervision of normal in third trimester, unspecified (ICD-10 - Z34.93) 09/14/2024 Encounter for supervision of normal in third trimester, unspecified (ICD-10 - Z34.93) 11/29/2024 Postoperative state (ICD-10 - Z98.890) normal activity 11/29/2024 state (ICD-10 - Z39.2) exam wnl, mood good, PAP UTD, BTL for BCM, RTC 02/2027 for pap, sooner if needed or indicated 10/03/2024 state (ICD-10 - Z39.2) exam wnl, mood good, PAP UTD, BTL for BCM, 10/03/2024 Encounter for consultation for female sterilization (ICD-10 - Z30.09) Desires permanent sterilization. Understands that this means that she will no longer be able to have children. It is permanent, not reversible. The only way to get after this procedure is by IVF. There is a less than 18.02/1000 cumulative failure rate between all tubal procedures and less than 0.5% with bilateral salpingectomies. Discussed that if she were to become it would likely be an ectopic and could require emergency surgery. Pt counseled that there is a 20% risk of regret with pt younger than 30yo. Declined other methods of control including pills, DMPA, LARCs. Pt was consented in the clinic by me. Discussed the risks of bleeding, infection, and damage to surrounding organs, pt understands and desires the procedure. Accepts blood if needed SCHEDULE for Dx lsc/BS/AOIP 08/31/2024 Encounter for supervision of normal in third trimester, unspecified (ICD-10 - Z34.93) 08/17/2024 Encounter for supervision of normal in third trimester, unspecified (ICD-10 - Z34.93) Week 37 of Your : Care Instructions material was printed 09/07/2024 Other Week 38 of Your : Care Instructions material was printed 10/03/2024 Other After Your Delivery (the Period): Care Instructions material was printed Plan Of Treatment Pending Test Test Name Order Date ABORh [id number], [id number] 02/10/2024 Antibody Screen [id number] 02/10/2024 Basic Metabolic Panel (BMP) 59721 2023 [place] [address] 02/10/2024 SYPHILIS TEST, QUAL (RPR) 77604 07/06/20 24 SYPHILIS TEST, QUAL (RPR) 46456 02/10/20 24 Hepatitis Bs Antigen 73288 02/10/2024 CBC w\o Diff 06715 02/10/2024 CBC w\o Diff 06801 07/06/2024 Varicella Zoster IgG 14974 02/10/2024 Rubella IgG 80882 02/10/2024 HIV 1/2 Ag/Ab Screen--49526,14866 2023 HIV 1/2 Ag/Ab Screen--25352,06631 2023 Next Appt Details Provider Name:Orly Lopes Yariel ers, 02/25/2027 02:00:00 PM, [address] [place] [address] Dr, [address], [place], [address], Insurance Providers Payer Name Payer Address Payer Phone Subscriber Number Group Number Insured Name Patient Relationship to Insured Coverage Start Date Coverage End Date Healthy [facility] Medicaid Replacement [address] [address] [place] [address] [id number] RONALD WATTS Self - patient is the insured [place] Medicaid [address] [place] [address] [id number] RONALD WATTS Self - patient is the insured Medications Administered Medication Instructions Date of Administration Dosage Notes Rho D Immune Globulin 07/06/2024 1500 units Medical (General) History Surgical History Surgery Date(Month/Year) dx lap/BS 10/25/2024
--- NOTE | 2025-08-11 08:44 | US_ITS ---
WS: [id number] US pelv w/transvag [id number] HISTORY: pelvic pain, vaginal bleeding COMPARISON: None available. Uterus: 7.5 cm x 5.8 cm x 4.7 cm. Normal size anteverted uterus. No fibroid or mass. Endometrium: 2.7 cm. Abnormal endometrium. The endometrium is markedly enlarged and hyperechoic. There is mild increased vascularity. Increased echogenicity also noted in the cervix is probably blood products. Right ovary: 4.0 cm x 2.9 cm x 2.7 cm. Slightly enlarged RIGHT ovary. There are multiple small follicles. Normal vascularity. Left ovary: 4.3 cm x 2.8 cm x 2.8 cm. Mildly enlarged ovary with numerous small follicles. Small amount of free fluid in the pelvis. US/US pelv w/transvag [id number] IMPRESSION: 1. Markedly enlarged hyperechoic endometrium. Endometrium is larger than expec vikram for the patient's normal menstrual cycle. Differential includes endometrial hyperplasia, neoplasm or a large polyp. Evaluation by DECK MECHANIC should be considered . 2. Normal vascularity identified in each ovary. 3. Ovaries are slightly enlarged with numerous small follicles. Suspect PCOS.
[2025-08-11 09:01] LABS: Hematocrit 37.4 % (36-47); Hemoglobin 12.40 g/dL (11.27-16.99); Mean Corpuscular HGB Conc 33.2 g/dL (30-55); Mean Corpuscular Hemoglobin 28.2 pg (27-33); Mean Corpuscular Volume 85.0 fl (85-98); Nucleated Red Blood Cells % 0 %; Platelet Count 236 10^3/cmm (157-399); Red Blood Count 4.40 10^6/uL (3.85-5.65); White Blood Count 11.92 10^3/uL (3.29-11.43)
[2025-08-11 09:23] LABS: Anion Gap 13.4 (5-19); Blood Urea Nitrogen 13 mg/dL (6-20); Calcium 8.9 mg/dL (8.5-10.5); Carbon Dioxide 21 mmol/L (22-29); Chloride 109 mmol/L (98-107); Creatinine Clr Calc Pharmacy 106.0681; Glucose 84 mg/dL (65-115); Osmolality Calculated 289 mOsm/kg (285-295); Potassium 3.4 mmol/L (3.5-5.1); Sodium 140 mmol/L (136-145)
--- NOTE | 2025-08-11 09:31 | W.ED.ABDPA2 ---
HPI - Abdominal Pain General: Chief Complaint: Abdominal Pain Stated Complaint: lower abdominal pain Time Seen by Provider: 08/11/25 08:22 History of Present Illness: 30-year-old female past medical history of tubal ligation at the beginning of this year, presenting the emergency department with onset of period yesterday which was otherwise expected, she had not had her period for several months until last month 1 month ago and started period yesterday but reports it is much heavier than normal, no purulent discharge, developed this morning overnight of a stabbing shooting pain to the left groin that radiates into the legs, no fevers or chills, no urinary symptoms, no back pain, no vomiting or diarrhea. Related Data Home Medications ?Medication ?Instructions ?Recorded ?Confirmed No Known Home Medications 06/04/23 08/11/25 Allergies Allergy/AdvReac Type Severity Reaction Status Date / Time No Known Allergies Allergy Verified 07/28/24 18:01 [facility] ED PFSH: Medical History No pertinent past medical history Social History Substance/Drug Use: unknown Physical Exam Narrative: EXAM NARRATIVE: Gen: A&Ox4, no acute distress, nontoxic appearing HEENT: Normocephalic, atraumatic, no scleral icterus, external ears normal, moist mucous membranes Neck: Supple, full range of motion, no observable masses Lungs: No Respiratory distress, Lungs clear to auscultation bilaterally no rales, rhonchi, wheezing CV: Regular rate and rhythm, no murmur, no pitting edema to lower extremities bilaterally Abdomen: Soft, nondistended, tender to palpation to the suprapubic and left lower quadrant regions MSK: No joint swelling, FROM all 4 extremities Skin: No rashes, petechiae, lesions. Normal color per patient. Neuro: Alert and oriented, no slurred speech, sensation and strength grossly intact all 4 extremities Psych: Appropriate for situation. Course Reevaluation(s): Reevaluation #1: Patient reassessed at this time, still comfortable, does not request any pain medication, went over the results of her workup to include follicular abnormalities in bilateral ovaries with possible PCOS not excluded, as well as marked endometrial thickening that requires INSULATION CUPOLA OPERATOR follow-up and possible biopsy to rule out malignancy. Patient endorsed understanding of this we will call her INSULATION CUPOLA OPERATOR today to set up an appointment, instructed to follow her symptoms closely and return to the ER if she experiences worsening bleeding leading to lightheaded dizziness or episodes of passing out, she develops severely worsening pain that she is unable to tolerate, fever vomiting or vaginal discharge. Time: 10:46 Vital Signs: Vital signs: Vital Signs Temperature 98.3 F 08/11/25 08:29 Pulse Rate 108 H 08/11/25 08:29 Respiratory Rate 18 08/11/25 08:29 Blood Pressure 113/56 08/11/25 08:29 Pulse Oximetry 93 08/11/25 08:29 Oxygen Delivery Me thod Room Air 08/11/25 08:29 MDM - Abdominal Pain Medical Decision Making 30-year-old female presenting with acute onset of left groin/pelvic pain in the setting of onset of vaginal bleeding at a time in which she was expecting her period, however this is in the context of irregular periods over the last year after tubal ligation and in which she was breast-feeding for 6 months, she did have a normal period 1 month ago, she appears clinically stable other than mild tachycardia but is in moderate to severe pain, plan for pelvic ultrasound rule out ovarian torsion, differential also includes ruptured ovarian cyst, low concern for UTI although considered, plan for labs, urine, ultrasound, pain control, reassess Lab Data Labs showing borderline leukocytosis 11.9, minimal hypokalemia 3.4 not clinically relevant, borderline acidemia 21, urinalysis with no UTI, does have RBCs which is consistent with patient being on her period, no DENIS 08/11/25 08:49 08/11/25 08:49 Labs/Radiology: Radiology Impressions Pelvic/Transvag US 08/11/25 08:44 IMPRESSION: 1. Markedly enlarged hyperechoic endometrium. Endometrium is larger than expected for the patient's normal menstrual cycle. Differential includes endometrial hyperplasia, neoplasm or a large polyp. Evaluation by NEWSPAPER STUFFER should be considered. 2. Normal vascularity identified in each ovary. 3. Ovaries are slightly enlarged with numerous small follicles. Suspect PCOS. Laboratory Results WBC 11.92 10^3/uL (3.29-11.43) H 08/11/25 08:49 RBC 4.40 10^6/uL (3.85-5.65) 08/11/25 08:49 Hgb 12.40 g/dL (11.27-16.99) 08/11/25 08:49 Hct 37.4 % (36-47) 08/11/25 08:49 MCV 85.0 fl (85-98) 08/11/25 08:49 MCH 28.2 pg (27-33) 08/11/25 08:49 MCHC 33.2 g/dL (30-55) 08/11/25 08:49 RDW 12.7 % (12.1-15.1) 08/11/25 08:49 Plt Count 236 10^3/cmm (157-399) 08/11/25 08:49 MPV 10.8 fL (7.4-10.4) H 08/11/25 08:49 Neut % (Auto) 79.8 % 08/11/25 08:49 Lymph % (Auto) 10.9 % 08/11/25 08:49 Worth % (Auto) 6.3 % 08/11/25 08:49 Eos % (Auto) 2.1 % 08/11/25 08:49 Baso % (Auto) 0.6 % 08/11/25 08:49 Neut # (Auto) 9.51 10^3/uL (1.8-7.7) H 08/11/25 08:49 Lymph # (Auto) 1.3 10^3/uL (0.8-4.8) 08/11/25 08:49 Worth # (Auto) 0.8 10^3/uL (0.2-0.9) 08/11/25 08:49 Eos # (Auto) 0.3 10^3/uL (0.0-0.8) 08/11/25 08:49 Baso # (Auto) 0.1 10^3/uL (0.0-0.1) 08/11/25 08:49 Nucleated RBC % (auto) 0 % 08/11/25 08:49 Nucleated RBCs # 0.0 /100WBC 08/11/25 08:49 Sodium 140 mmol/L (136-145) 08/11/25 08:49 Potassium 3.4 mmol/L (3.5-5.1) L 08/11/25 08:49 Chloride 109 mmol/L (98-107) H 08/11/25 08:49 Carbon Dioxide 21 mmol/L (22-29) L 08/11/25 08:49 Anion Gap 13.4 (5-19) 08/11/25 08:49 BUN 13 mg/dL (6-20) 08/11/25 08:49 Creatinine 0.7 mg/dL (0.5-0.9) 08/11/25 08:49 GFR Calculation 98.9 mL/min (90-130) 08/11/25 08:49 Glucose 84 mg/dL (65-115) 08/11/25 08:49 Calculated Osmolality 289 mOsm/kg (285-295) 08/11/25 08:49 Calcium 8.9 mg/dL (8.5-10.5) 08/11/25 08:49 HCG, Qual Negative (Negative) 08/11/25 09:23 Urine Color Yellow (Yellow) 08/11/25 09:23 Urine Appearance Cloudy (CLEAR) A 08/11/25 09:23 Urine pH TNP 08/11/25 09:23 Ur Specific [place] Not Reportable 08/11/25 09:23 Urine Protein Not Reportable 08/11/25 09:23 Urine Glucose (UA) Not Reportable 08/11/25 09:23 Urine Ketones Not Reportable 08/11/25 09:23 Urine Blood Not Reportable 08/11/25 09:23 Urine Nitrate Not Reportable 08/11/25 09:23 Urine Bilirubin Not Reportable 08/11/25 09:23 Urine Urobilinogen Not Reportable 08/11/25 09:23 Ur Leukocyte Esterase Not Reportable 08/11/25 09:23 Urine RBC 25-40 /hpf (0-2) H 08/11/25 09:23 Urine WBC 0-4 /hpf (0-5) H 08/11/25 09:23 Ur Squamous Epith Cells 0-4 /hpf (0-5) H 08/11/25 09:23 Amorphous Sediment Not Reportable 08/11/25 09:23 Urine Bacteria Trace /hpf (NONE) 08/11/25 09:23 Urine Mucus 2+ /hpf 08/11/25 09:23 All radiology interpretation(s) finalized by discharge ED provider radiology interpretation(s): Pelvic ultrasound showing bilateral ovarian follicular abnormalities possible PCOS as well as marked endometrial enlargement, normal ovary flow Discharge Plan Discharge Patient Disposition: Home Clinical Impression: Pelvic pain, Endometrial thickening on ultrasound Condition: Stable Prescriptions: No Action No Known Home Medications Discharge Orders: Discharge ED (Routine); Ordered 08/11/25 Ordered By: Lester Holman Patient Instructions: Abdominal Pain (ED), Patient Portal & Ketan Instructions, Pelvic Pain in Women (ED) Activity Restrictions/Additional Instructions: You were seen in the emergency department for pelvic pain that started with your period, your workup showed some follicular cystic structures in both ovaries as well as significant enlargement of the endometrium which is the inner lining of your uterus, this can indicate overgrowth of that area but also can indicate in some cases malignancy/cancer or polyps. I recommend you follow-up with your INSULATION CUPOLA OPERATOR for formal comprehensive evaluation and possible biopsy, return to the emergency department if you experience worsening pain, severe bleeding leading to lightheaded dizziness or episodes of passing out that raise concern for anemia, fevers, vaginal discharge, or any other concerns Print Language: Spanish Coding Level of Care Code ED Air Defence Officer for Raven Shannon
[2025-08-11 09:35] LABS: HCG Qualitative Urine. Negative (Negative)
[2025-08-11 09:47] LABS: UA Manual Slide Review YES
[2025-08-11 10:32] VITALS: BP 110/71; PULSE 88; O2SAT 96
[2025-08-11 11:13] VITALS: BP 97/52; PULSE 52; O2SAT 98
== END 2025-08-11 11:18 | disposition home or self-care (01) ==
PROVIDERS: Emergency Provider Student in an Organized Health Care Education/Training Program
DX: R10.20 Pelvic and perineal pain unspecified side (principal); R93.89 Abnormal findings on diagnostic imaging of other specified body structures
CPT/HCPCS: 36415; 76830; 76856; 80048; 81001; 81025; 85025; 87086; 99284

== ENCOUNTER 2025-08-25 16:10 | Emergency (ER) | payer MEDICAID, SELFPAY ==
--- OUTSIDE RECORDS SUMMARY | 2024-10-25 04:30 | XMS_ITS ---
Author Organization [facility] Address [address] [place] [address] Care Team Providers Care Digital Marketing Specialist Name Role Phone Lisa Orly Unavailable [phone] REASON FOR VISIT BTL Encounters Encounter Location Date Provider Diagnosis [address] [place] [address] 10/25/2024 Orly Gonzalez Plan Of Treatment Next Appt Details Provider Name:Orly ferguson, 02/25/2027 02:00:00 PM, [address] [place] [address] [address] [address], [place], [address], Progress Notes * RONALD WATTS SDOB: [birth year] (30 yo F)Acc No.[id number]:10/25/2024 Patient: Jesse COELHO RONALD Leanne Provider: Mamta Gonzalez MD :1995 A ge:29 Y S ex:Female Date:10/25/2024 Address:[address] [place], [place] [id number] Billing Information: * Procedure Codes: * Electronic signature of Gianfranco Gonzalez MD on 08/25/2025 at 04:18 PM SPREADER OPERATOR Sign off status: Pending * Provider: Mamta Gonzalez MD Date: 10/25/2024 Generated for Judith ventura/Usama/Yolandaitting on: 10/25/2024 04:18 PM SPREADER OPERATOR
--- OUTSIDE RECORDS SUMMARY | 2024-11-24 07:00 | XMS_ITS ---
Author Organization [facility] Address [address] [place] [address] Care Team Providers Care Deaf And Hard Of Hearing Teacher Name Role Phone Lisa Orly Unavailable [phone] REASON FOR VISIT 4 WK POST OP Encounters Encounter Location Date Provider Diagnosis [address] [place] [address] 11/24/2024 Orly Gonzalez Plan Of Treatment Next Appt Details Provider Name:Orly Saldivar ers, 02/25/2027 02:00:00 PM, [address] [place] [address] [address] [address], [place], [address], Progress Notes * RONALD WATTS SDOB: [birth year] (30 yo F)Acc No.[id number]:11/24/2024 Patient: Jesse COELHO RONALD Leanne Provider: Mamta Gonzalez MD :1995 A ge:29 Y S ex:Female Date:11/24/2024 Address:[address] [place], [place] [phone] Subjective: * Chief Complaints: * 4 WK POST OP Billing Information: * Procedure Codes: * Electronic signature of Gianfranco Gonzalez MD on 08/25/2025 at 04:18 PM COMPUTER PROGRAMMER CHIEF Sign off status: Pending * Provider: Mamta Gonzalez MD Date: 11/24/2024 Generated for Judith ventura/Usama/Yolandaitting on: 10/25/2024 04:18 PM COMPUTER PROGRAMMER CHIEF
--- OUTSIDE RECORDS SUMMARY | 2025-08-24 02:15 | XMS_ITS ---
Author Organization [facility] Address [address] [place] [address] Care Team Providers Care Medical Examiner Name Role Phone Orly Gonzalez Unavailable [phone] Allergies No Known Allergies Results Component Value Reference Range Flag Notes Thyroid Stimulating Hormone (TSH) 07000 (Not yet reviewed by provider) Interpretation: Performing Lab: Notes/Report: Diagnosis Description: Abnormal uterine and vaginal bleeding, unspecified TSH 1.023 .358-3.740 MlU/ML CBC w\o Diff 26869 (Not yet reviewed by provider) Interpretation: Performing Lab: Notes/Report: Diagnosis Description: Abnormal uterine and vaginal bleeding, unspecified WBC 8.1 4.5-11.0 X10'3 RBC 4.85 4.00-5.20 X10'6 Hgb 13.1 12.0-16.0 G/DL Hct 41.2 36.0-46.0 % MCV 84.9 80.0-100.0 FL MCH 27.0 27.0-31.0 PG MCHC 31.8 31.0-37.0 G/DL Platelet 329 150-400 X10'3 RDW-SD 38.5 35.0-49.0 FL RDW-CV 12.2 12.2-15.6 % MPV 11.2 9.2-12.0 FL Prolactin 16248 (Not yet rev iewed by provider) Interpretation: Performing Lab: Notes/Report: Diagnosis Description: Abnormal uterine and vaginal bleeding, unspecified Prolactin 4.2 NA Expected Values Females Non: 2.8?29.2 ng/mL : 9.7? > 200 ng/mL Postmenopausal: 1.8?20.3 ng/mL Males 2.1?17.7 ng/mL Hemoglobin A1c 43796 (Not ye t reviewed by provider) Interpretation: Performing Lab: Notes/Report: Diagnosis Description: Abnormal uterine and vaginal bleeding, unspecified Hgb A1c 4.9 3.8-6.4 % Interpretation Of Hgb A1c: 4.5-6.2 % nondiabetics. >7.0 % diabetics. EAG 94 NA Estimated Aver age Glucose(EAG). Basic Metabolic Panel (BMP) 32151 (Not yet reviewed by provider) Interpretation: Performing Lab: Notes/Report: Diagnosis Description: Abnormal uterine and vaginal bleeding, unspecified Sodium 142 136-145 MMOL/L Potassium 4.2 3.5-5.1 MMOL/L Chloride 106 98-107 MMOL/L CO2 25.8 20.0-31.0 MMOL/L Glucose Serum 103 71-110 MG/DL Testing p erformed at [facility], [address] [place] [address] [place] [address]. CLIA ID#: [id number] BUN 11 7-21 MG/DL Creat .70 .51-1.17 MG/DL L-izkcyh-q-benzoquinone imine (NAPQI) is a metabolite of acetaminophen, [...] the potential for falsely depressed results. GFR 119.0 NA Calculation pe rformed from GFR calculator provided by the [employer]. Glomerular Filtration rate(GRF) is the best overall index of kidney function. Normal GFR varies according to age,sex, body size, and declines with age. The [employer] recommends using the CKD-EPI Creatinine Equation(2020) to estimate GFR. Anion Gap 14 5-15 BUN/Creat Ratio 15.7 12.0-20.0 % Calcium 9.5 8.7-10.4 MG/DL Osmo Serum,Calculated 294 280-300 MOSM/KG REASON FOR VISIT sign consent for Dc Medications Medication SIG (Take, Route, Frequency, Duration) Notes Start Date End Date Status Active Escitalopram Oxalate 10 MG Tablet 1/2 tablet for first 8 days then 1 tab daily Orally Once a day; Duration: 30 days 04/12/2024 Active Doxycycline Monohydrate 100 MG Capsule 1 capsule Orally twice a day; Duration: 14 days 08/24/2025 09/07/2025 Active Social History Tobacco Use: Social History Observation Description Date Details (start date - stop date) Current Smoker NA - NA Social History Tobacco Use: Social Info Question Answer Notes Tobacco Control (Standard) Tobacco use: Current smoker How often do you smoke cigarettes? Every day How many cigarettes a day do you smoke? 6-10 Additional Details Category Social Info Options Details Drugs/Alcohol: Do you smoke marijuana? De nies Do you drink alcohol? No Section Notes: Tob 14-1/2ppd, negative eto h & illicit drugs, lives with sister and kids, safe, denies h/o abuse, SAHM Problems Problem Type SNOMED Code ICD Code Onset Dates Problem Status W/U Status Risk Notes Problem Abnormal uterine bleeding (51321717725367) Abnormal uterine bleeding (AUB) (N93.9) Active confirmed Problem Female pelvic inflammatory disease (702290530) Female pelvic inflammatory disease, unspecified (N73.9) Active confirmed Vital Signs Blood pressure systolic 116 mm Hg 08/24/20 25 Blood pressure diastolic 68 mm Hg 025 Heart Rate 91 /min 08/24/2025 Respiratory Rate 18 /min 08/24/2025 Height 63 in 08/24/2025 Weight 137.57 lbs 08/24/2025 BMI 24.37 kg/m2 08/24/2025 Oximetry 100 % 08/24/2025 Height-cm 160.02 cm 08/24/2025 Weight-kg 62.4 kg 08/24/2025 Encounters Encounter Location Date Provider Diagnosis [address] LEY[place] [address] [place] [address], [place] [address] 08/24/2025 Orly Gonzalez Abnormal uterine bleeding (AUB) N93.9 ; Female pelvic inflammatory disease, unspecified N73.9 and Pelvic pain R10.20 Assessments Encounter Date Diagnosis (ICD Code) Assessment Notes Treatment Notes Treatment Clinical Notes Section Notes 08/24/2025 Abnormal uterine bleeding (AUB) (ICD-10 - N93.9) AUB-P, discussed medication vs expectatn vs surgical management, pt desires surgery. will send labs. Surgery consent: Pt was consented in the clinic by me. Discussed the risks of bleeding,infect ion, and damage to surrounding organs, pt understands and desires theprocedure. Accepts blood if needed SCHEDULE for hsc/D&C/AOIP 08/24/2025 Female pelvic inflammatory disease, unspecified (ICD-10 - N73.9) PID, sono without TOA, gave roecphin today and sent in doxy x 14 days. 08/24/2025 Pelvic pain (ICD-10 - R10.20) due to PID, will treat Plan Of Treatment Medication Medication Name Sig Start Date Stop Date Notes Doxycycline Monohydrate 100 MG Capsule 1 capsule Orally twice a day; Duration: 14 days 08/24/2025 09/07/2025 Treatment Notes Assessment Notes Abnormal uterine bleeding (AUB) AUB-P, discussed medication vs expectatn vs surgical management, pt desires surgery. will send labs. Surgery consent: Pt was consented in the clinic by me. Discussed the risks of bleeding,infection, and damage to surrounding organs, pt understands and desires theprocedure. Accepts blood if needed SCHEDULE for hsc/D&C/AOIP Female pelvic inflammatory d isease, unspecified PID, sono without TOA, gave roecphin tod ay and sent in doxy x 14 days. Pelvic pain due to PID, will ector at Pending Test Test Name Order Date Basic Metabolic Panel (BMP) 92414 2024 Hemoglobin A1c 58616 08/24/2025 Prolactin 11736 08/24/2025 Thyroid Stimulating Hormone (TSH) 12695 08/24/2025 CBC w\o Diff 89337 08/24/2025 Next Appt Details Follow Up: surgery, Reason: Provider Name:Orly ferguson, 02/25/2027 02:00:00 PM, [address] [place] [address] , [facility], [place], [address], Medications Administered Medication Instructions Date of Administration Dosage Notes cefTRIAXone Sodium 08/24/2025 500 mg History and Physical Notes * HPI (History of Present Illness) Category Sub-Category Detail Notes Category Not es Provider Note 30yo (Lmp 08/2025, none) with no PMH who presents today for AUB with EMt 2.6. Reports last 2 months she has had increased bleeding lasting 5 days using 10ppd with egg sized clots, will stop bleeding for about 2 weeks and then bleed again. Reports the worst pain she has ever had with her cycles. Does not radiate and not better with meds. not currenlty sexually active. Denies h/o abnormal pap. Denies dysuria or constipation. Denies vaginal discharge, odor, itching, burning. Denies fevers, LEON, CP, SOB, abd pain, leg pain. PMH obtained by me: PMH: denies PSH: denies Med: PNV All: NKDA FHx: Denies and GI cancers, denies blood disorders, SHx: Tob 1/4-1/2ppd, negative etoh & illicit drugs, lives with sister and kids, safe, denies h/o abuse, SAHM Gynhx: menarche 12yo with irregular cycles skipping months now regular lasting 6-7 days using 4ppd, no h/o abnormal paps (last pap 02/2024), no h/o STI OBhx: SVDx2 Examination Category Sub-Category Detail Notes Category Not es General Examination General: well nourished, NAD, cooperative, well groomed Neuro: AAOx3, normal mood, normal gait HEENT: no conjunctival pallor or scleral injection, Skin: [place], warm, dry, no rashes CV: RRR, no murmur Lungs: CTAB, no crackles or wheezing, Abd: soft, ND, NT, no masses, +BS; no CVAT Ext: no edema, not TTP, +2 pulses, Examination Pelvic Exam: Chaperoned by Nemo Scribe External: normal female genitalia and urethra, no hyper/hypopigmentation, no lesions, no LAD, normal hair pattern, Speculum: normal vaginal mucosa, normal appearing cervix without masses or lesions, bloody discharge, no bright red blood in vault, os visually closed, BME: Os closed, ++ CMT, 8wk uterus, no pelvic or adnexal masses palpated, ++ uterine tenderness, no adnexal tenderness, RVE: normal appearing anus PAP 02/2024: NILM/HPV NEG Propath done today Sono results 08/2025 ([facility]): report personally reviewed and interpretated by me Uterus: [id number], normal; EMT: 2.7cm with some increased vascularity, NEGRITA: nromal, No adnexal masses, scant free fluid Progress Notes * RONALD WATTS SDOB: [birth year] (30 yo F)Acc No.[id number]:08/24/2025 Patient: RONALD PARDO Provider: Mamta Gonzalez MD :[id number] A ge:30 Y S ex:Female Date:08/24/2025 Address:[address] [place], [place] [id number] Check In:08:18 AM CSTCheck O 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 Reports last 2 months she has had increased bleeding lasting 5 days using 10ppd with egg sized clots, will stop bleeding for about 2 weeks and then bleed again. Reports the worst pain she has ever had with her cycles. Does not radiate and not better with meds. not currenlty sexually active. D enies h/o abnormal pap. Denies dysuria or constipation. Denies vaginal discharge, odor, itching, burning. Denies fevers, LEON, CP, SOB, abd pain, leg pain. PMH obtained by me: PMH: denies PSH: denies Med: PNV All: NKDA FHx: Denies and GI cancers, denies blood disorders, SHx: Tob 1/4-1/2ppd, n egative etoh & illicit drugs, lives with sister and kids, safe, denies h/o abuse, SAHM Gynhx: menarche 12yo with irregular cycles skipping months now regular lasting 6-7 days using 4ppd, no h/o abnormal paps (last pap 02/2024), no h/o STI OBhx: SVDx2. * ROS: C onstitutional: No fevers, chills, sweats HEENT: no eye pain or discharge, ear pain, nasal congestion, sore throat, Integumentary: no rashes, breast pain or drainage Respiratory: No shortness of breath, cough, Cardiovascular: No Chest pain, palpitations, syncope Gastrointestinal: No nausea, vomiting, diarrhea, constipation, Genitourinary: No hematuria, dysuria, flank pain, +pelvic pain, vaginal discharge, vaginal odor, Endocrine: No excessive thirst or hunger, skin/nail/hair changes, hot/cold intolerance, Musculoskeletal: No back pain, neck pain, joint pain, muscle pain, decreased range of motion Neurologic: No headaches, dizziness, changes in vision, Psychiatric: No anxiety, depression. * Medical History: No Medical History Documented Medical History Verified * Syrup Blender History: M enarche: A ge of menarche: 2 1 * OB History: G P : 2 * Surgical History: dx lap/BS 10/25/2024 Surgical History verified. * Hospitalization/Major Diagno stic Procedure: Denies Past Hospitalization. Hospitalization Verified. * Family History: N o Family History documented.. F amily History Verified.. * Social History: T obacco Use: T obacco Control (Standard) T obacco use: C urrent smoker H ow often do you smoke cigarettes? E very day H ow many cigarettes a day do you smoke? 6 -10 D rugs/Alcohol: D o you smoke marijuana?: Denies. Do you drink alcohol?: No. S ocial History Verified. T ob /4-1/2ppd, n egative etoh & illicit drugs, lives with sister and kids, safe, denies h/o abuse, SAHM. * Medications: T akingEscitalopram Oxalate 10 MG Tablet 1/2 tablet for first 8 days then 1 tab daily Orally Once a day Medication List reviewed and reconciled with the patientTaking Escitalopram Oxalate 10 MG Tablet 1/2 tablet for first 8 days then 1 tab daily Orally Once a day Taking Medication List reviewed and reconciled with the patient * Allergies: N .K.D.A.yesAllergies Verified. Objective: * Vitals: H t: 63 in, Wt:137.57lbs, Wt-k.4 kg, BMI:24.37Index, BP:116/68mm Hg, HR:91/min, RR:18/min, Oxygen sat %:100%, O2 Source: RA, Ht-cm: 160.02 cm. * Examination: G eneral Examination: G eneral: well nourished, NAD, cooperative, well groomed Neuro: AAOx3, normal mood, normal gait HEENT: no conjunctival pallor or scleral injection, Skin: [place], warm, dry, no rashes CV: RRR, no murmur Lungs: CTAB, no crackles or wheezing, Abd: soft, ND, NT, no masses, +BS; no CVAT Ext: no edema, not TTP, +2 pulses,. E xamination: P elvic Exam: Chaperoned by Nemo [place] External: normal female genitalia and urethra, no hyper/hypopigmentation, no lesions, no LAD, normal hair pattern, Speculum: normal vaginal mucosa, normal appearing cervix without masses or lesions, bloody discharge, no bright red blood in vault, os visually closed, BME: Os closed, ++ CMT, 8wk uterus, no pelvic or adnexal masses palpated, ++ uterine tenderness, no?adnexal tenderness, RVE: normal appearing anus PAP 02/2024: NILM/HPV NEG Propath done today Sono results 1 10/2024 ([facility]): report personally reviewed and interpretated by me Uterus: [id number], normal; E MT: 2.7cm with some increased vascularity, B O: nromal, N o adnexal masses, scant f ree fluid. Assessment: * Assessment: 1. A bnormal uterine bleeding (AUB) - N93.9 (Primary) 2 . F emale pelvic inflammatory disease, unspecified - N73.9 3 . P elvic pain - R10.20 ? Plan: * Treatment: 2. F emale pelvic inflammatory disease, unspecified Start Doxycycline Monohydrate Capsule, 100 MG, 1 capsule, Orally, twice a day, 14 days, 28 Capsule, Start Date: 08/24/2025, Stop Date: 09/07/2025, Refills 0. Notes: PID, sono without TOA, gave roecphin today and sent in doxy x 14 days. 3. P elvic pain Notes: due to PID, will treat * Therapeutic Injections: Ceftriaxone : 500 mg (Dose No:1) (Route: Intramuscular) given by Jason Meyer on left buttock * Procedure Codes: 3 078F DIAST BP < 80 MM [id number] SYST BP LT 130 MM [id number] THER/PROPH/DIAG INJ, SC/IM * Follow Up: s phil Billing Information: * Visit Code: 53631 Office Visit, Est Pt., Level 4. * Procedure Codes: 3078F DIAST BP < 80 MM HG. 3074F SYST BP LT 130 MM HG. [id number] Ceftriaxone. 88467 THER/PROPH/DIAG INJ, SC/IM. * UT INSPECTOR Sign off status: Completed true * Provider: Mamta Gonzalez MD Date: 10/24/2024 Generated for Judith ventura/Usama/Yolandaitting on: 10/25/2024 04:19 PM LAYOUT INSPECTOR
[2025-08-25 16:15] VITALS: BP 121/86; PULSE 104; RESP 16; TEMP 36.9; O2SAT 97
--- OUTSIDE RECORDS SUMMARY | 2025-08-25 16:19 | XMS_ITS | Patient Health Record ---
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 CLIA ID#: [id number] BUN 11 7-21 MG/DL Creat .70 .51-1.17 MG/DL Z-bnltjf-z-benzoquino ne imine (NAPQI) is a metabolite of [...] 8.7-10.4 MG/DL Osmo Serum,Calculated 294 280-300 MOSM/KG Hemoglobin A1c 69502 (Not ye t reviewed by provider) Interpretation: Performing Lab: Notes/Report: Diagnosis Description: Abnormal uterine and vaginal bleeding, unspecified Hgb A1c 4.9 3.8-6.4 % Interpretation Of Hgb A1c: 4.5-6.2 % nondiabetics. >7.0 % diabetics. EAG 94 NA Estimated Aver age Glucose(EAG). Prolactin 40119 (Not yet rev iewed by provider) Interpretation: Performing Lab: Notes/Report: Diagnosis Description: Abnormal uterine and vaginal bleeding, unspecified Prolactin 4.2 NA Expected Values Females Non: 2.8?29.2 ng/mL : 9.7? > 200 ng/mL Postmenopausal: 1.8?20.3 ng/mL Males 2.1?17.7 ng/mL Thyroid Stimulating Hormone (TSH) 01486 (Not yet reviewed by provider) Interpretation: Performing Lab: Notes/Report: Diagnosis Description: Abnormal uterine and vaginal bleeding, unspecified TSH 1.023 .358-3.740 MlU/ML CBC w\o Diff 02342 (Not yet reviewed by provider) Interpretation: Performing Lab: Notes/Report: Diagnosis Description: Abnormal uterine and vaginal bleeding, unspecified WBC 8.1 4.5-11.0 X10'3 RBC 4.85 4.00-5.20 X10'6 Hgb 13.1 12.0-16.0 G/DL Hct 41.2 36.0-46.0 % MCV 84.9 80.0-100.0 FL MCH 27.0 27.0-31.0 PG MCHC 31.8 31.0-37.0 G/DL Platelet 329 150-400 X10'3 RDW-SD 38.5 35.0-49.0 FL RDW-CV 12.2 12.2-15.6 % MPV 11.2 9.2-12.0 FL Magnesium (B) 17579 Reviewed date:09/20/2024 09:30:56 AM Interpretation: Performing Lab: Notes/Report: Magnesium 5.6 1.8-2.4 MG/DL WI Comprehensive Metabolic Pane l (CMP) 92574 Reviewed date:09/21/2024 10:19:09 AM Interpretation: Performing Lab: Notes/Report: Glucose Serum 64 71-110 MG/DL LOW Testing p erformed at [facility], [address] [place] [address] [place] [address]. CLIA ID#: [id number] BUN 8 7-21 MG/DL Creat .66 .51-1.17 MG/DL N-atqrfd-f-benzoquino ne imine (NAPQI) is a metabolite of [...] UNIT/L LOW Osmo Serum,Calculated 287 280-300 MOSM/KG Leukorrhea - 46604, 96034, 8 8446, 33343, 51285 Reviewed date:08/24/2025 11:49:28 PM Interpretation: Performing Lab: Notes/Report: Chlamydia Sent to Ref Lab,result in clinical notes Gonorrhea Sent to Ref Lab,result in clinical notes Trichomonas Sent to Ref Lab Bleed Screen--No CPT Reviewed date:09/19/2024 12:51:50 PM Interpretation: Performing Lab: Notes/Report: Order placed by Discern to assess need for Rho(D) immune globulin. Screen Negative QC Positive Positive QC Negative Negative # of 300mcg doses of Rho IG 1 NA UA Without Micro-Auto, [place] - [address] Reviewed date:09/14/2024 01:22:28 PM Interpretation: Performing Lab: Notes/Report: Color jeremías Clarity clear Glucose - Bili - Ketones - Sp Savanna 1.025 Blood - pH 6.0 Protein 2+ Urobili 0.2 Nitrites - Leukocytes - Magnesium (B) 30968 Reviewed date:09/20/2024 09:30:56 AM Interpretation: Performing Lab: Notes/Report: Magnesium 5.7 1.8-2.4 MG/DL HI UA Reflex Micro, Reflex Cult 05798, 34159, 07695 Reviewed date:09/15/2024 08:35:21 AM Interpretation: Performing Lab: [...] NA Normal UA Yes Urine Culture No Culture Urine Reflex--53779 Reviewed date:10/06/2024 09:25:45 AM Interpretation: Performing Lab: Notes/Report: Culture Urine Reflex BOB Nguyen Culture Urine Reflex t: Culture Urine Reflex Culture Urine Reflex Accessio [id number] Culture Urine Reflex n: Culture Urine Reflex Microbiology Culture Urine Reflex PROCEDURE: Culture Urine Reflex [] Culture Urine Reflex SOURCE: U CC BODY SITE: Culture Urine Reflex COLLECTED DATE/TIME : 09/18/2024 20:14 CLINICAL DATA SPECIALIST RECEIVED DATE/TIME: 09/18/2024 20:21 CLINICAL DATA SPECIALIST Culture Urine Reflex START DATE/TIME: 09/18/2024 20:21 CLINICAL DATA SPECIALIST FREE TEXT SOURCE: Culture Urine Reflex FINAL REPORT Culture Urine Reflex Final Report [] Culture Urine Reflex Verified Date/Time: 09/20/2024 06:32 CLINICAL DATA SPECIALIST Culture Urine Reflex > 10,000 cfu/ml mixed superficial kathryn Culture Urine Reflex Multiple microorganisms present Culture Urine Reflex Probable contamination ABORh 87338, 50518 Reviewed date:09/19/2024 07:59:40 AM Interpretation: Performing Lab: Notes/Report: ABO/Rh Interp A NEG Unknown Antibody Screen 06851 Reviewed date:09/19/2024 07:59:40 AM Interpretation: Performing Lab: Notes/Report: Blood Bank ID [id number] Unknown ABSC Interp Negative Comprehensive Metabolic Pane l (CMP) 03377 Reviewed date:09/19/2024 07:59:40 AM Interpretation: Performing Lab: Notes/Report: Glucose Serum 94 71-110 MG/DL Testing p erformed at [facility], [address] [place] [address] [place] [address]. CLIA ID#: [id number] BUN 9 7-21 MG/DL Creat .54 .51-1.17 MG/DL W-wnevyq-u-benzoquino ne imine (NAPQI) is a metabolite of [...] UNIT/L LOW Osmo Serum,Calculated 282 280-300 MOSM/KG Magnesium (B) 60549 Reviewed date:09/19/2024 07:59:40 AM Interpretation: Performing Lab: Notes/Report: Magnesium 1.9 1.8-2.4 MG/DL SYPHILIS TEST, QUAL (RPR) 86 592 Reviewed date:09/19/2024 07:59:40 AM Interpretation: Performing Lab: Notes/Report: Syphilis Screen Non-Reactive NA Testing performed via [employer]m IM analyzer. This assay is a Chemiluminescent Microparticle Immunoassay for the detection of Treponemal antibodies. Reactive samples will be confirmed via RPR w/Reflex to Titer in accordance with CDC's recommended reverse sequence screening algorithm. Comprehensive Metabolic Pane l (CMP) 50288 Reviewed date:09/19/2024 03:44:06 PM Interpretation: Performing Lab: Notes/Report: Glucose Serum 162 71-110 MG/DL HI Testing p erformed at [facility], [address] [place] [address] [place] [address]. CLIA ID#: [id number] BUN 6 7-21 MG/DL LOW Creat .53 .51-1.17 MG/DL Q-kqzqbp-i-benzoquino ne imine (NAPQI) is a metabolite of [...] UNIT/L LOW Osmo Serum,Calculated 291 280-300 MOSM/KG Magnesium (B) 44467 Reviewed date:09/19/2024 03:43:59 PM Interpretation: Performing Lab: Notes/Report: Magnesium 4.7 1.8-2.4 MG/DL HI ZZZPathology Specimen Reviewed date:09/20/2024 09:30:56 AM Interpretation: Performing Lab: Notes/Report: Order placed by Discern for documentation of an indication for pathology of the placenta. Pathology Specimen Sent to Pathologist Comprehensive Metabolic Pane l (CMP) 31631 Reviewed date:09/20/2024 09:30:56 AM Interpretation: Performing Lab: Notes/Report: Glucose Serum 107 71-110 MG/DL Testing p erformed at [facility], [address] [place] [address] [place] [address]. CLIA ID#: [id number] BUN 6 7-21 MG/DL LOW Creat .59 .51-1.17 MG/DL G-hfzqvg-n-benzoquino ne imine (NAPQI) is a metabolite of [...] UNIT/L LOW Osmo Serum,Calculated 284 280-300 MOSM/KG CBC w\ Manual Diff 62355, 85 027 Reviewed date:09/20/2024 09:30:56 AM Interpretation: [...] Normal Morph Absolute Neutrophil Count 6384 NA Comprehensive Metabolic Pane l (CMP) 03605 Reviewed date:09/20/2024 09:30:56 AM Interpretation: Performing Lab: Notes/Report: Glucose Serum 76 71-110 MG/DL Testing p erformed at [facility], [address] [place] [address] [place] [address]. CLIA ID#: [id number] BUN <5 7-21 MG/DL LOW Creat .58 .51-1.17 MG/DL G-ohxjie-a-benzoquino ne imine (NAPQI) is a metabolite of [...] UNIT/L LOW ALT/SGPT <7 12-78 UNIT/L LOW UA Without Micro-Auto, [place] - [address] Reviewed date:08/31/2024 11:49:45 AM Interpretation: Performing Lab: Notes/Report: Color yellow Clarity cloudy Glucose - Bili - Ketones - Sp Savanna 1.030 Blood - pH 6.0 Protein +- Urobili 0.2 Nitrites - Leukocytes - CT/ NG PCR 24433, 90114 Reviewed date:08/31/2024 05:00:40 PM Interpretation: Performing Lab: Notes/Report: Diagnosis Description: Encounter for supervision of normal , unspecified, third trimester CT PCR NOT DETECTED NG PCR NOT DETECTED Culture, Group B Strep--8708 1 Reviewed date:09/05/2024 08:06:36 AM Interpretation: Performing Lab: Notes/Report: Culture Group B Strep RONALD Nguyen Culture Group B Strep t: Culture Group B Strep Culture Group B Strep [facility] [id number] Culture Group B Strep n: Culture Group B Strep Microbiology Culture Group B Strep PROCEDURE: Culture Group B Strep Culture Group B Strep [O1] Culture Group B Strep SOURCE: Body Fl BODY SITE: Culture Group B Strep COLLECTED DATE/TIME: 08/31/2024 08:56 CLINICAL DATA SPECIALIST RECEIVED DATE/TIME: 08/31/2024 14:42 CLINICAL DATA SPECIALIST Culture Group B Strep START DATE/TIME: 08/31/2024 14:42 CLINICAL DATA SPECIALIST FREE TEXT SOURCE: Culture Group B Strep FINAL REPORT Culture Group B Strep Final Report [] Culture Group B Strep Verified Date/Time: 09/02/2024 08:17 CLINICAL DATA SPECIALIST Culture Group B Strep No group B streptococci isolated Culture Group B Strep Order Comments Culture Group B Strep O1: Culture Group B Strep (Culture, Group B Strep) Culture Group B Strep Diagnosis Description: Encounter for supervision of normal , unspecified, third Culture Group B Strep trimester WBC Auto Diff--32377 Reviewed date:09/19/2024 07:59:40 AM Interpretation: Performing Lab: Notes/Report: Added by Discern Rules Neutro Auto% 76.7 40.0-70.0 % HI Lymph Auto% 15.0 22.0-44.0 % LOW Love Auto% 6.8 3.0-7.0 % Eos Auto% .7 2.0-4.0 % LOW Baso Auto% 0.1 0.0-1.0 % NRBC% .00 .00-.20 /100 intact WBC's Neutro Abs 5.84 .80-7.70 Absolute Neutrophil Count 5840 NA Lymph Abs 1.14 .10-4.10 Love Abs .52 .20-1.00 Eos Abs .05 .00-.40 Baso Abs .01 .00-.20 NRBC# .00 .00-.20 X10'3 Imm Gran Abs .05 .00-.10 Imm Gran% .7 .0-.4 % HI Creatinine (U) 75687 Reviewed date:09/19/2024 07:59:40 AM Interpretation: Performing Lab: Notes/Report: Ur Creat 214.4 29.0-226.0 [place] [address], 8 5007 Reviewed date:09/19/2024 07:59:40 AM Interpretation: Performing Lab: Notes/Report: WBC 7.6 4.5-11.0 X10'3 RBC 3.83 4.00-5.20 X10'6 LOW Hgb 10.7 12.0-16.0 G/DL LOW Hct 32.0 36.0-46.0 % LOW MCV 83.6 80.0-100.0 FL MCH 27.9 27.0-31.0 PG MCHC 33.4 31.0-37.0 G/DL Platelet 194 150-400 X10'3 RDW-SD 40.0 35.0-49.0 FL RDW-CV 13.2 12.2-15.6 % MPV 11.5 9.2-12.0 FL Review Auto Diff Conf Protein (U) Random 27256 Reviewed date:09/19/2024 07:59:40 AM Interpretation: Performing Lab: Notes/Report: Ur Prot 243.30 .00-12.00 MG/DL HI UA Microscopic--04734 Reviewed date:10/06/2024 09:25:45 AM Interpretation: Performing Lab: Notes/Report: Micro UA ordered by [employer] Expert Rules system. RBC U 3 NA WBC U 27 0-5 /HPF HI Bacteria 2+ Hyaline Casts 4 NA SQ EPI 24 NA Drug Screen Multi Panel 8030 5 [...] Type: Urine Cutoff value: 10 ng/mL UA Reflex Micro, Reflex Cult 90750, 79887, 74055 Reviewed date:10/06/2024 09:25:45 AM Interpretation: Performing Lab: [...] Yes UA Without Micro-Auto, [place] - [address] Reviewed date:09/07/2024 02:17:00 PM Interpretation: Performing Lab: Notes/Report: Color JEREMÍAS Clarity CLEAR Glucose - Bili - Ketones - Sp Savanna 1.020 Blood - pH 6.0 Protein -+ Urobili 0.2 Nitrites - Leukocytes - Reason For Referral No Information Medications Medication SIG (Take, Route, Frequency, Duration) Notes Start Date End Date Status Active Escitalopram Oxalate 10 MG Tablet 1/2 tablet for first 8 days then 1 tab daily Orally Once a day; Duration: 30 days 04/12/2024 Active Doxycycline Monohydrate 100 MG Capsule 1 capsule Orally twice a day; Duration: 14 days 08/24/2025 09/07/2025 Active Immunizations Vaccine Route Administration Date Status [...] you drink alcohol? No Section Notes: Tob 10/08-pd, negative eto h & illicit drugs, lives with sister and kids, safe, denies h/o abuse, SAHM Prior tob [...] and daughter, safe, denies h/o abuse, SAHM Problems Problem Type SNOMED Code ICD Code Onset Dates Problem Status W/U Status Risk Notes Problem Female pelvic inflammatory disease (022140173) Female pelvic inflammatory disease, unspecified (N73.9) Active confirmed Problem Abnormal uterine bleeding (71041502410360) Abnormal uterine bleeding (AUB) (N93.9) Active confirmed Problem Anxiety (04402603) Anxiety (F41.9) Active confirmed Vital Signs Heart Rate 91 /min 08/24/2025 Respiratory Rate 18 /min 08/24/2025 Blood pressure diastolic 68 mm Hg 08/24/2025 Oximetry 100 % 08/24/2025 Height-cm 160.02 cm 08/24/2025 Weight-kg 62.4 kg 08/24/2025 Height 63 in 08/24/2025 Blood pressure systolic 116 mm Hg 08/24/2025 Weight 137.57 lbs 08/24/2025 BMI 24.37 kg/m2 08/24/2025 Encounters Encounter Location Date Provider Diagnosis [address] [place] [address] 09/07/2024 Orly Gonzalez Encounter for supervision of normal in third trimester, unspecified Z34.[address] [place] [address] 08/31/2024 Orly Gonzalez Encounter for supervision of normal in third trimester, unspecified Z34.[address] [place] [address] 11/29/2024 Orly Gonzalez state Z39.2 and Postoperative state Z98.8[address] [place] [address] 10/03/2024 Orly Gonzalez state Z39.2 and Encounter for consultation for female sterilization Z30.[address] [place] [address] 08/24/2025 Orly Gonzalez Abnormal uterine bleeding (AUB) N93.9 ; Female pelvic inflammatory disease, unspecified N73.9 and Pelvic pain R10.[address] [place] [address] 09/14/2024 Orly Gonzalez Encounter for supervision of normal in third trimester, unspecified Z34.[address] [place] [address] 10/25/2024 Orly Gonzalez [address] [place] [address] 08/14/2025 Orly Gonzalez [address] [place] [address] 08/26/2024 Orly Gonzalez Assessments Encounter Date Diagnosis (ICD Code) Assessment Notes Treatment Notes Treatment Clinical Notes Section Notes 08/31/2024 Encounter for supervision of normal in third trimester, unspecified (ICD-10 - Z34.93) 09/07/2024 Encounter for supervision of normal in third trimester, unspecified (ICD-10 - Z34.93) 09/14/2024 Encounter for supervision of normal in third trimester, unspecified (ICD-10 - Z34.93) 10/03/2024 state (ICD-10 - Z39.2) exam wnl, [...] blood if needed SCHEDULE for Dx lsc/BS/AOIP 11/29/2024 Postoperative state (ICD-10 - Z98.890) normal activity 11/29/2024 state (ICD-10 - Z39.2) exam wnl, mood good, PAP UTD, BTL for BCM, RTC 02/2027 for pap, sooner if needed or indicated 08/24/2025 Female pelvic inflammatory disease, unspecified (ICD-10 - N73.9) PID, sono without TOA, gave roecphin today and sent in doxy x 14 days. 08/24/2025 Abnormal uterine bleeding (AUB) (ICD-10 - N93.9) AUB-P, discussed medication vs expectatn vs surgical management, pt desires surgery. will send labs. Surgery consent: Pt was consented in the clinic by me. Discussed the risks of bleeding,infectio n, and damage to surrounding organs, pt understands and desires theprocedure. Accepts blood if needed SCHEDULE for hsc/D&C/AOIP 08/24/2025 Pelvic pain (ICD-10 - R10.20) due to PID, will treat 09/07/2024 Other Week 38 of Your : Care Instructions material was printed 10/03/2024 Other After Your Delivery (the Period): Care Instructions material was printed Plan Of Treatment Pending Test Test Name Order Date ABORh 29285, 72135 02/10/2024 Antibody Screen 23631 02/10/2024 Basic Metabolic Panel (BMP) 23896 2023 Basic Metabolic Panel (BMP) 15063 2024 Hemoglobin A1c 87307 08/24/2025 [place] [address] 02/10/2024 Prolactin 80345 08/24/2025 SYPHILIS TEST, QUAL (RPR) 70953 07/06/20 24 SYPHILIS TEST, QUAL (RPR) 87409 02/10/20 Thyroid Stimulating Hormone (TSH) 37099 08/24/2025 Hepatitis Bs Antigen 31238 02/10/2024 CBC w\o Diff 10503 02/10/2024 CBC w\o Diff 45690 08/24/2025 CBC w\o Diff 52997 07/06/2024 Varicella Zoster IgG 66198 02/10/2024 Rubella IgG 77984 02/10/2024 HIV 1/2 Ag/Ab Screen--25834,54040 2023 HIV 1/2 Ag/Ab Screen--85537,68775 2023 Next Appt Details Provider Name:Orly ferguson, 02/25/2027 02:00:00 PM, [address] [place] [address] , [facility], [place], [address], Insurance Providers Payer Name Payer Address Payer Phone Subscriber Number Group Number Insured Name Patient Relationship to Insured Coverage Start Date Coverage End Date [place] [address] [place] [address] [id number] RONALD WATTS Self - patient is the insured Medications Administered Medication Instructions Date of Administration Dosage Notes cefTRIAXone Sodium 08/24/2025 500 mg Rho D Immune Globulin 07/06/2024 1500 units Medical (General) History Surgical History Surgery Date(Month/Year) dx lap/BS 10/25/2024
--- OUTSIDE RECORDS SUMMARY | 2025-08-25 16:19 | XMS_ITS | Data Portability ---
Author Organization DEMIAN Mckenzie [facility] [place] Address [address] [address] Assessment No assessment recorded. Plan of Treatment Reminders Order Date Submit Date Provider Last Modified By Organization Details Last Modified Time Details Appointments None record ed. Lab None record ed. Referral None record ed. Procedures None record ed. Surgeries None record ed. Imaging None record ed. Medication Orders None record ed. Patient TargetsNo targets recorded. Patient InstructionsNo instructions recorded. Reason for Referral None Reported. Medical Equipment None Reported. Medications Name Sig Start Date Stop Date Status Note LastModified by Organization Details LastModified Time ibuprofen 800 mg tablet three times daily, as needed 2014 active as needed for pain; Recorded 5 10:11AM by Georgina Ramirez CMT, Office Visit; Refill Quantity: 0; Not Available Not Available Not Available Tylenol-Cod eine No.3 300 mg-30 mg tablet four times daily, as needed 2014 active as needed for pain; Recorded 5 10:11AM by Georgina Ramirez CMT, Office Visit; Refill Quantity: 0; Not Available Not Available Not Available Vitals Date Recorded Systolic And Diastolic Provider Name and Address Organization Details Last Updated DateTime 08/26/2024 122/88 mm[Hg] Emily staley [facility] [place] 08/26/2024 13:29:47 Social History None recorded. Functional Status None recorded. Mental Status None recorded. Family History Nothing Reported. Medical History No medical history recorded. Gynecological HistoryNo gynecological history recorded. Obstetrics History GPAL:G 0 P 0 0 0 0 Past Encounters Encounter ID Performer Location Encounter Start Date Encounter Closed Date Diagnosis/Indication Diagnosis SNOMED-CT Code Diagnosis ICD10 Code Diagnosis IMO Codes Diagnosis Note [id number] MANDEEP WHEAT [facility] [address] [place] [address] 08/26/2024 13:09:13 08/26/2024 13:46:19 Health Concerns Section Related Observation LastModified by Organization Detai ls LastModified Time None Recorded Concern Status LastModified by Organization Details LastModified Time None Recorded Advance Directives Directive None Recorded Payers Insurance Date Sequence Insurance Name Policy Number Policy Romo Covered Member ID Romo Member ID Guarantor Name 08/26/2024 1 [employer] [place]MEDICA[place]ACEMENT - HMO) [id number] Mariana S Moreno [id number] Mariana S Moreno Notes Date Note Type Note Provider Name and Address Organization Details Recorded Time 08/26/2024 text/html patients blood pressure running high on her wrist cuff. she is requesting a manual blood pressure check. nurse visit DEMIAN Pierson - [facility], [place] 08/26/2024 13:33:52 OBGyn Episode No OBEpisode recorded.
--- NOTE | 2025-08-25 16:48 | W.ED.ALLEREA ---
HPI - Allergic Reaction General: Chief complaint: Allergic Reaction Stated complaint: poss allergic reaction Time Seen by Provider: 08/25/25 16:48 Source: patient Mode of arrival: ambulatory Limitations: no limitations History of Present Illness: HPI narrative: Patient is a 30-year-old female presents to ED today with a concern of a possible allergic reaction to a new medication. Patient states she was prescribed doxycycline from her ELECTROMEDICAL EQUIPMENT TECHNICIAN, Dr. Gonzalez for treatment of a pelvic infection . She states she took her first dose yesterday evening and shortly after feels like her heart was racing . She also remembers her tongue feeling slightly numb as well. She states she was able to fall asleep without difficulty and sleep all night. She states she woke up this morning and took another dose and began having feelings of racing heart rate, tongue numbness, and developed hives to the anterior aspect of her neck that were itchy. She states she reached out to her ELECTROMEDICAL EQUIPMENT TECHNICIAN who recommended taking 100 mg of Benadryl and coming to the emergency department. She reportedly told the patient she will prescribe her something different for her pelvic infection. Upon arrival, patient states her hives have improved. She does not feel like her heart is racing. No chest pain/SOB. Denies tongue/lip swelling, difficulty breathing or swallowing. MD complaint: allergic reaction Onset (ago): hour(s) Exposure: medication Associated symptoms: Deny abdominal pain, dizziness, nausea or vomiting Severity: mild Treatment prior to arrival: benadryl Previous Allergic Reaction History: none Related Data Home Medications ?Medication ?Instructions ?Recorded ?Confirmed No Known Home Medications 06/04/23 08/11/25 Allergies Allergy/AdvReac Type Severity Reaction Status Date / Time No Known Allergies Allergy Verified 07/28/24 18:01 Review of Systems Const: Denies: fever(s), chills, body aches, fatigue or malaise ENMT: Denies: swelling of lips/tongue Card: Reports: other (felt like her heart was racing-resolved); Denies: edema, swelling of feet/ankles, lightheadedness, syncope or pre-syncope Resp: Denies: dyspnea GI: Denies: abdominal pain, nausea, vomiting or diarrhea Skin/Breast: Reports: rash (anterior neck) and pruritus (anterior neck) Neuro: Denies: headache(s), numbness in extremities, weakness in extremities, sensory changes or dizziness [facility] PFSH: Medical History No pertinent past medical history Social History Substance/Drug Use: unknown Physical Exam Const: COMMON NORMALS: no acute distress, average body habitus, patient oriented x3, no limitations, healthy appearing, alert and well nourished GENERAL APPEARANCE: cooperative ORIENTATION/CONSCIOUSNESS: Yes awake, Yes oriented to person, Yes oriented to place and Yes oriented to time HENMT: COMMON NORMALS: normocephalic and atraumatic HEAD & SCALP: normal to inspection, normocephalic and atraumatic FACE & SINUS: normal facial exam MOUTH: Normal oral and palatal mucosa present, lip normal, tongue normal and Normal salivary glands and ducts present; no audible dysphonia and no muffled voice THROAT: posterior oropharynx normal and tonsils normal Neck/C-Spine: COMMON NORMALS: full ROM, no lymphadenopathy, supple and no meningeal signs GENERAL: No anterior neck swelling and No submandibular swelling Chest: COMMONS NORMALS: normal inspection of the chest Resp: COMMON NORMALS: normal respiratory effort and clear to auscultation bilaterally AUSCULTATION: clear to auscultation bilaterally Cardio: COMMON NORMALS: regular rate and regular rhythm RATE: regular rate RHYTHM: regular rhythm GI: COMMON NORMALS: Normal to inspection, nondistended, normoactive bowel sounds present, Soft to palpation, non-tender, No hepatosplenomegaly present and no masses PALPATION: Yes Soft to palpation and Yes No hepatosplenomegaly present Extremity: COMMON NORMALS: normal to inspection GENERAL: Yes normal exam except as noted Neuro: OLEG COMA SCALE: document GCS findings Oleg coma scale eye opening: Spontaneous Oleg coma scale verbal response: Orientated [place] coma scale motor response: Obey commands [place] coma scale total score: 15 COMMON NORMALS: patient oriented x3, CN's II-XII intact bilaterally, moves all extremities, no focal motor deficits, no sensory deficits noted and gait normal SENSORIUM/ORIENTATION: Yes alert, Yes oriented to person, Yes oriented to place and Yes oriented to time MENINGEAL SIGNS: Yes no meningeal signs Skin: NARRATIVE SKIN EXAM: fading urticaria to anterior neck RASHES: rashes noted Course Vital Signs: Vital signs: Vital Signs Temperature 98.4 F 08/25/25 16:15 Pulse Rate 104 H 08/25/25 16:15 Respiratory Rate 16 08/25/25 16:15 Blood Pressure 121/86 08/25/25 16:15 Pulse Oximetry 97 08/25/25 16:15 Oxygen Delivery Me thod Room Air 08/25/25 16:15 MDM - Allergic Reaction Medical Decision Making Patient states she continues to feel better while here in the emergency department. She was given a dose of IM Solu-Medrol. She can continue Benadryl. Recommend discontinuation of Doxycycline. She has already reached out to her ELECTROMEDICAL EQUIPMENT TECHNICIAN who will place her on something different for treatment of her pelvic infection. Patient clinically appears in no acute distress. I do not have any suspicion at this time for anaphylactic reaction. Return ED precautions discussed. Differential Diagnosis Likely anaphylaxis, allergic reaction, angioedema, adverse reaction to drug, viral enanthem and urticaria Medical Records I reviewed the patient's medical records. No radiology studies performed this visit Discharge Plan Discharge Patient Disposition: Home Clinical Impression: Allergic reaction due to antibacterial drug Condition: Stable Prescriptions: No Action No Known Home Medications Discharge Orders: Discharge ED (Routine); Ordered 08/25/25 Ordered By: Monika Garrison Patient Instructions: Adverse Drug Reaction (ED), Patient Portal & Ketan Instructions Activity Restrictions/Additional Instructions: As we discussed, please discontinue the doxycycline. Reach out to your ELECTROMEDICAL EQUIPMENT TECHNICIAN so they can place you on something else for the pelvic infection. You may continue to use 25-50 mg of Benadryl every 4-6 hours over the next day or two if needed. You may return to the emergency department at anytime for any shortness of breath or difficulty breathing, severe rash, chest pain, severe abdominal pain, vomiting, diarrhea, fevers, or any other concerns you may have. Print Language: Azeri Coding Level of Care Code ED Television Specialist for Raven Shannon
[2025-08-25] MEDS: methylPREDNISolone sod succ 125 mg/2 mL INJ 80 MG IM (17:20)
[2025-08-25 17:38] VITALS: BP 107/72; PULSE 81; O2SAT 100
== END 2025-08-25 17:39 | disposition home or self-care (01) ==
PROVIDERS: Emergency Provider Physician Assistant
DX: R00.2 Palpitations (principal); T36.4X5A Adverse effect of tetracyclines, initial encounter; X58.XXXA Exposure to other specified factors, initial encounter
CPT/HCPCS: 96372; 99284; J2919